=== PATIENT | female | born 1950 ===

== ENCOUNTER 2016-10-24 17:05 | Emergency (ER) | payer MEDICARE, MEDICAID ==
[2016-10-24 17:05] VITALS: BMI 29.9
--- NOTE | 2016-10-24 17:48 | C.PDOC ---
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 Chase is managing her anti- coagulations and recently did a dopplar and said the clot is getting smaller and everything looked normal but today the pain pain increased with swelling to the medial posterior aspect. Patient denies fever, chills, chest pain, SOB, nausea, vomiting, abdominal pain, headache, weakness or numbness. Time Seen by Provider: 10/24/16 17:20 Chief Complaint (Nursing): Lower Extremity Problem/Injury History Per: Patient History/Exam Limitations: no limitations Onset/Duration Of Symptoms: Days (1) Past Medical History Reviewed: Historical Data, Nursing Documentation, Vital Signs Vital Signs: Last Vital Signs Temp 98.1 F 10/24/16 20:07 Pulse 68 10/24/16 20:07 Resp 16 10/24/16 20:07 BP 128/69 10/24/16 20:07 Pulse Ox 100 10/24/16 20:07 - Medical History PMH: Deep Vein Thrombosis (on Pradaxa), Fractures (LUE), HTN, Hypercholesterolemia - [facility] Procedures VACCINATION NEC (12/17/13) Family History: States: No Known Family Hx - Social History Hx Tobacco Use: Yes Hx Alcohol Use: No Hx Substance Use: No - Immunization History Hx Tetanus Toxoid Vaccination: No Hx Influenza Vaccination: No Hx Pneumococcal Vaccination: No Review Of Systems Except As Marked, All Systems Reviewed And Found Negative. Constitutional: Negative for: Fever, Chills Cardiovascular: Negative for: Chest Pain Respiratory: Negative for: Shortness of Breath Gastrointestinal: Negative for: Nausea, Vomiting, Abdominal Pain Musculoskeletal: Positive for: Other ((+) Bilateral leg swelling and pain ) Neurological: Negative for: Weakness, Numbness, Headache Physical Exam - Physical Exam Appears: Well, Non-toxic, No Acute Distress Skin: Warm, Dry, No Rash Head: Atraumatic, Normacephalic Eye(s): bilateral: Conjunctiva Pale Oral Mucosa: Moist Chest: Symmetrical, No Tenderness Cardiovascular: Rhythm Regular, No Murmur Respiratory: Normal Breath Sounds, No Rales, No Rhonchi, No Stridor, No Wheezing Gastrointestinal/Abdominal: Normal Exam, Soft, No Tenderness, No Guarding, No Rebound Extremity: Other ((+) Bilateral leg swelling and tenderness along the greater saphenous to the medial aspect. (-) No bruising. ) Pulses: Left Dorsalis Pedis: Normal, Right Dorsalis Pedis: Normal Neurological/Psych: Oriented x3, Normal Speech, Normal Motor, Normal Sensation ED Course And Treatment - Laboratory Results Result Diagrams: 10/24/16 17:57 10/24/16 17:57 Lab Interpretation: No Acute Changes O2 Sat by Pulse Oximetry: 98 Progress Note: Venous doppler negative for DVT/SVT. Fluid collection present in posterior knee. Reevaluation Time: 20:18 Reassessment Condition: Unchanged Medical Decision Making Medical Decision Making: PLAN: * Venous Dopplar * CBC Disposition - Disposition Disposition: HOME/ ROUTINE Disposition Time: 20:18 Condition: STABLE Additional Instructions: follow up with Dr Fonseca. Wear your compression stockings as directed. Instructions: Bridges's Cyst (ED) - Clinical Impression Clinical Impression: Bridges's cyst of knee - Scribe Statement The provider has reviewed the documentation as recorded by the Gini Angeles Provider Attestation: All medical record entries made by the Gini were at my direction and personally dictated by me. I have reviewed the chart and agree that the record accurately reflects my personal performance of the history, physical exam, medical decision making, and the department course for this patient. I have also personally directed, reviewed, and agree with the discharge instructions and disposition.
[2016-10-24 18:05] LABS: BASO % 0.5 % (0.0-2.0); EOS # 0.2 K/uL (0.0-0.7); HEMATOCRIT 36.3 % (34.0-47.0); LYMPH # 1.5 K/uL (1.0-4.3); LYMPH % 25.6 % (20.0-40.0); MEAN CELL VOLUME 91.8 fL (81.0-99.0); MEAN CORPUSCULAR HEMOGLOBIN 30.8 pg (27.0-31.0); MEAN CORPUSCULAR HGB CONC 33.6 g/dL (33.0-37.0); MEAN PLATELET VOLUME 9.9 fL (7.2-11.7); MONO # 0.4 K/uL (0.0-0.8); MONO % 6.5 % (0.0-10.0); NRBC % 0.1 % (0.0-2.0); RED CELL DISTRIBUTION WIDTH 13.1 % (11.5-14.5)
[2016-10-24 18:11] LABS: INR 1.1
[2016-10-24 18:13] LABS: CHLORIDE 99 mmol/L (98-107); POTASSIUM 3.4 mmol/L (3.6-5.2); SODIUM 139 mmol/L (132-148)
[2016-10-24 18:15] LABS: BILIRUBIN,TOTAL 0.6 mg/dL (0.2-1.3); GFR AFRICAN-AMERICAN > 60
[2016-10-24 18:16] LABS: ALB/GLOB RATIO 1.4 (1.0-2.1); ALKALINE PHOSPHATASE 71 U/L (38-126); ALT/SGPT 19 U/L (9-52); AST/SGOT 24 U/L (14-36); BLOOD UREA NITROGEN 21 mg/dL (7-17); CARBON DIOXIDE 26 mmol/L (22-30); GLUCOSE,RANDOM 88 mg/dL (65-105); TOTAL PROTEIN 7.8 g/dL (6.3-8.3)
[2016-10-24 20:08] VITALS: TEMP 98.1
[2016-10-24 20:30] VITALS: BP 132/80; PULSE 65; RESP 20; O2SAT 100
--- NOTE | 2016-10-26 10:54 | VASCLAB ---
PROCEDURE: Right Lower Extremity Venous Duplex Exam. HISTORY: Hx DVT PRIORS: Last exam 05/2016, normal. TECHNIQUE: Right common femoral, femoral, popliteal and posterior tibial, peroneal and great saphenous veins were evaluated. Flow was assessed with color Doppler, compressibility, assessment of phasic flow and augmentation response. Report prepared by Eunice Brower call center associate. FINDINGS: RIGHT: 1. Common Femoral Vein: 1.1. Compressibility - Fully compressible: Thrombus - None: Flow - Phasic: Augmentation -Normal: Reflux - None. 2. Femoral Vein: 2.1. Compressibility - Fully compressible: Thrombus - None: Flow - Phasic: Augmentation -Normal: Reflux - None. 3. Popliteal Vein: 3.1. Compressibility - Fully compressible: Thrombus - None: Flow - Phasic: Augmentation -Normal: Reflux - Mild, 2.60s 4. Posterior Tibial Vein: 4.1. Compressibility - Fully compressible: Thrombus - None: Flow - Phasic: Augmentation -Normal: Reflux - None. 5. Peroneal Vein: 5.1. Compressibility - Fully compressible: Thrombus - None: Flow - Phasic: Augmentation -Normal: Reflux - None. 6. Great Saphenous Vein: 6.1. Compressibility - Fully compressible: Thrombus -None: Flow - Phasic: Augmentation - Normal: Reflux - Mild, 3.52s OTHER FINDINGS: IMPRESSION: 1. No evidence of deep or superficial vein thrombosis of the right lower extremity. Mild valvular incompetence noted of the right popliteal and great saphenous veins. 2. Fluid collection noted in the right posterior knee area, measuring 3.64 x 1.23 c.m. Normal venous flow noted in the left common femoral vein.
== END 2016-10-24 20:30 | disposition home or self-care (01) ==
LOC: C.ER 17:05
DX: M71.21 Synovial cyst of popliteal space [Baker], right knee (principal)

== ENCOUNTER 2016-10-26 07:21 | Emergency (ER) | payer MEDICARE, MEDICAID ==
[2016-10-26 07:21] VITALS: BMI 29.9
--- NOTE | 2016-10-26 07:41 | C.PDOC ---
History Of Present Illness Patient c/o right knee pain x 4 days. she was seen here 3 days ago, had LE venous duplex that was negative for DVT, but pos for Bridges's cyst. Patient has chronic pain in the same knee and had multiple prior visits for similar pain. Time Seen by Provider: 10/26/16 07:38 Chief Complaint (Nursing): Lower Extremity Problem/Injury History Per: Patient History/Exam Limitations: no limitations Onset/Duration Of Symptoms: Days (4) Current Symptoms Are (Timing): Still Present Severity: Moderate Pain Scale Rating Of: 7 Recent travel outside of the [place]: No Past Medical History Reviewed: Historical Data, Nursing Documentation, Vital Signs Vital Signs: Last Vital Signs Temp 98 F 10/26/16 08:46 Pulse 64 10/26/16 08:46 Resp 16 10/26/16 08:46 BP 135/74 10/26/16 08:46 Pulse Ox 98 10/26/16 08:46 - Medical History PMH: Deep Vein Thrombosis (on Pradaxa), Fractures (LUE), HTN, Hypercholesterolemia, TIA Other PMH: Chronic knee pain - [facility] Procedures VACCINATION NEC (12/17/13) Family History: States: Unknown Family Hx - Social History Hx Tobacco Use: Yes Hx Alcohol Use: No Hx Substance Use: No - Immunization History Hx Tetanus Toxoid Vaccination: No Hx Influenza Vaccination: No Hx Pneumococcal Vaccination: Yes Review Of Systems Except As Marked, All Systems Reviewed And Found Negative. Physical Exam - Physical Exam Appears: Well, No Acute Distress Skin: Normal Color, Warm, Dry, No Rash, No Cyanotic, No Ecchymosis, Other (no erythema) Neck: Normal, Normal ROM Back: No Vertebral Tenderness, No Paraspinal Tenderness Extremity: Tenderness (right knee , diffuse), Swelling (mild swelling of the right knee w/o erythema, w/o warmth) Neurological/Psych: Oriented x3, Normal Speech, Normal Cognition, Other ( ambulatory) ED Course And Treatment O2 Sat by Pulse Oximetry: 100 Progress Note: Patient was treated with Percocet 1 tab po and knee brace. [place] SPECIAL INVESTIGATOR aware reviewed. Patient had Percocet 10 tab in June last year. Patient was d/c home with PMD and Ortho f/u. Rx for Percocet 5/335 mg 10 tabs. Disposition - Disposition Disposition: HOME/ ROUTINE Disposition Time: 08:12 Condition: STABLE Additional Instructions: Follow up with PMD/Orthopedist within 1-2 days. Return to ED if feel worse. Prescriptions: oxyCODONE/Acetaminophen [Percocet 5/325 mg Tab] 1 tab PO QID PRN #10 tab PRN Reason: Pain Instructions: Knee Pain (ED) Forms: Work Excuse - Clinical Impression Clinical Impression: Knee pain
[2016-10-26] MEDS ORDERED: Oxycodone/Acetaminophen 5/325 mg Tab PO STA (07:58)
[2016-10-26] MEDS ORDERED: Oxycodone/Acetaminophen 5/325 mg Tab ONE (08:10)
[2016-10-26 08:47] VITALS: BP 135/74; PULSE 64; RESP 16; TEMP 98
[2016-10-26 08:57] VITALS: O2SAT 100
== END 2016-10-26 08:50 | disposition home or self-care (01) ==
LOC: C.ER 07:21
DX: M25.561 Pain in right knee (principal)

== ENCOUNTER 2016-11-24 15:25 | Emergency (ER) | payer MEDICAID, MEDICARE ==
[2016-11-24 15:26] VITALS: BMI 29.0
[2016-11-24 15:37] VITALS: BP 115/70; PULSE 71; RESP 18; TEMP 98.3; O2SAT 95
--- NOTE | 2016-11-24 16:43 | RAD ---
PROCEDURE: Radiographs of the Lumbar Spine. HISTORY: r/o fx COMPARISON: No prior. FINDINGS: BONES: Mild rightward convexity of the lumbar spine. No listhesis. No fracture. Marginal osteophytes -diffuse and right inferior facet arthrosis DISC SPACES: Unremarkable. OTHER FINDINGS: Moderate stool retention IMPRESSION: Degenerative changes as above. No fracture
--- NOTE | 2016-11-24 17:06 | C.PDOC ---
History Of Present Illness 66 year old patient presents to the ED complaining of left lower back pain that increases with movement for 2 days. 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 She took Tylenol with some relief. She is unable to take NSAIDs due to gastric issues. Patient denies dysuria, hematuria, numbness, weakness, or direct trauma to her back. Time Seen by Provider: 11/24/16 16:01 Chief Complaint (Nursing): Back Pain History Per: Patient History/Exam Limitations: no limitations Onset/Duration Of Symptoms: Days (2) Current Symptoms Are (Timing): Still Present Quality Of Discomfort: "Pain" Severity: Mild Pain Scale Rating Of: 3 Associated Symptoms: None Exacerbating Factor(s): Movement Recent travel outside of the [place]: No Past Medical History Reviewed: Historical Data, Nursing Documentation, Vital Signs Vital Signs: Last Vital Signs Temp 98.3 F 11/24/16 15:34 Pulse 71 11/24/16 15:34 Resp 18 11/24/16 15:34 BP 115/70 11/24/16 15:34 Pulse Ox 95 11/24/16 18:10 - Medical History PMH: Deep Vein Thrombosis (on Pradaxa), Fractures (LUE), HTN, Hypercholesterolemia, TIA - [facility] Procedures VACCINATION NEC (12/17/13) Family History: States: Unknown Family Hx - Social History Hx Tobacco Use: Yes Hx Alcohol Use: No Hx Substance Use: No - Immunization History Hx Tetanus Toxoid Vaccination: No Hx Influenza Vaccination: No Hx Pneumococcal Vaccination: Yes Review Of Systems Except As Marked, All Systems Reviewed And Found Negative. Genitourinary: Negative for: Dysuria, Hematuria Musculoskeletal: Positive for: Back Pain (left lower) Neurological: Negative for: Weakness, Numbness Physical Exam - Physical Exam Appears: Non-toxic, No Acute Distress Skin: Warm, Dry Head: Atraumatic, Normacephalic Eye(s): bilateral: Normal Inspection, PERRL, EOMI Neck: Normal ROM, Supple Chest: Symmetrical Cardiovascular: Rhythm Regular Respiratory: Normal Breath Sounds, No Rales, No Rhonchi, No Wheezing Gastrointestinal/Abdominal: Soft, No Tenderness Back: Normal Inspection, No CVA Tenderness, No Vertebral Tenderness Extremity: Normal ROM Extremity: Bilateral: Atraumatic Neurological/Psych: Oriented x3, Normal Motor, Normal Sensation Gait: Steady ED Course And Treatment O2 Sat by Pulse Oximetry: 95 (room air) Pulse Ox Interpretation: Normal - Other Rad LS spine AP/Lat X-Ray: Read By Radiologist (Sarah Benito V.) Interpretation: PROCEDURE: Radiographs of the Lumbar Spine. HISTORY: r/o fx. COMPARISON: No prior. FINDINGS: BONES: Mild rightward convexity of the lumbar spine. No listhesis. No fracture. Marginal osteophytes -diffuse and right inferior facet arthrosis. DISC SPACES: Unremarkable. OTHER FINDINGS: Moderate stool retention. IMPRESSION: Degenerative changes as above. No fracture Progress Note: Plan: LS spine AP/Lat x-ray Disposition - Disposition Referrals: [facility], [Non-Staff] - Disposition: HOME/ ROUTINE Disposition Time: 16:25 Condition: GOOD Additional Instructions: Thank you for letting us take care of you today. Your provider was Dr. Hand. You were treated for lower back pain. The emergency medical care you received today was directed at your acute symptoms. If you were prescribed any medication, please fill it and take as directed. It may take several days for your symptoms to resolve. Return to the Emergency Department if your symptoms worsen, do not improve, or if you have any other problems. Please contact your doctor or call one of the physicians/clinics you have been referred to that are listed on the Patient Visit Information form that is included in your discharge packet. Bring any paperwork you were given at discharge with you along with any medications you are taking to your follow up visit. Our treatment cannot replace ongoing medical care by a primary care provider (PCP) outside of the emergency department. Thank you for allowing the [facility] team to be part of your care today. Follow up with your doctor in 2-3 days for re-evaluation. Prescriptions: Cyclobenzaprine [Cyclobenzaprine HCl] 10 mg PO Q8 PRN #20 tab PRN Reason: Muscle Spasm Instructions: Acute Low Back Pain (ED) - Clinical Impression Clinical Impression: Low back pain - Scribe Statement The provider has reviewed the documentation as recorded by the Scribe Veronique Frye Provider Attestation: All medical record entries made by the Scribe were at my direction and personally dictated by me. I have reviewed the chart and agree that the record accurately reflects my personal performance of the history, physical exam, medical decision making, and the department course for this patient. I have also personally directed, reviewed, and agree with the discharge instructions and disposition.
== END 2016-11-24 16:54 | disposition home or self-care (01) ==
LOC: C.ER 15:25
DX: M54.5 Low back pain (principal)

== ENCOUNTER 2017-01-01 13:22 | Observation (INO) | payer MEDICARE, MEDICAID ==
[2017-01-01 13:34] VITALS: BMI 29.7
--- NOTE | 2017-01-01 14:39 | RAD ---
HISTORY: chest pain COMPARISON: Chest x-ray performed 03/17/16 TECHNIQUE: Chest PA and lateral FINDINGS: Examination limited by habitus. LUNGS: Mild left basilar atelectasis or infiltrate. Please note that chest x-ray has limited sensitivity for the detection of pulmonary masses. PLEURA: No significant pleural effusion identified. No definite pneumothorax . CARDIOVASCULAR: Heart size appears top normal. OSSEOUS STRUCTURES: Degenerative changes. VISUALIZED UPPER ABDOMEN: Unremarkable. OTHER FINDINGS: None. IMPRESSION: Mild left basilar atelectasis or infiltrate.
[2017-01-01 14:56] LABS: BASO % 0.6 % (0.0-2.0); EOS # 0.1 K/uL (0.0-0.7); EOS % 3.1 % (0.0-4.0); HEMATOCRIT 35.4 % (34.0-47.0); LYMPH # 1.3 K/uL (1.0-4.3); MEAN CELL VOLUME 92.7 fL (81.0-99.0); MEAN CORPUSCULAR HEMOGLOBIN 30.8 pg (27.0-31.0); MEAN CORPUSCULAR HGB CONC 33.2 g/dL (33.0-37.0); MEAN PLATELET VOLUME 9.3 fL (7.2-11.7); MONO # 0.4 K/uL (0.0-0.8); RED CELL DISTRIBUTION WIDTH 13.5 % (11.5-14.5); WHITE BLOOD COUNT 4.4 K/uL (4.8-10.8)
[2017-01-01 14:58] LABS: RBC URINE 1 /hpf (0-3); URINE BACTERIA RARE (<OCC); URINE BILIRUBIN NEGATIVE (NEGATIVE); URINE BLOOD NEGATIVE (NEGATIVE); URINE COLOR Yellow (YELLOW); URINE GLUCOSE (UA) NORMAL (Normal); URINE KETONE NEGATIVE (NEGATIVE); URINE LEUKOCYTE ESTERASE TRACE Leu/uL (Negative); URINE PROTEIN NEGATIVE (NEGATIVE); URINE UROBILINOGEN NORMAL mg/dL (0.2-1.0); WBC URINE 4 /hpf (0-5)
[2017-01-01 15:03] LABS: INR 1.2
[2017-01-01 15:04] LABS: CHLORIDE 99 mmol/L (98-107)
[2017-01-01 15:05] LABS: POTASSIUM 3.7 mmol/L (3.6-5.2); SODIUM 139 mmol/L (132-148)
[2017-01-01 15:08] LABS: ALB/GLOB RATIO 1.3 (1.0-2.1); ALKALINE PHOSPHATASE 69 U/L (38-126); ALT/SGPT 32 U/L (9-52); AST/SGOT 23 U/L (14-36); BILIRUBIN,TOTAL 0.4 mg/dL (0.2-1.3); BLOOD UREA NITROGEN 19 mg/dL (7-17); CALCIUM 9.3 mg/dl (8.6-10.4); CARBON DIOXIDE 25 mmol/L (22-30); GFR AFRICAN-AMERICAN > 60; GLUCOSE,RANDOM 117 mg/dL (65-105); TOTAL PROTEIN 6.9 g/dL (6.3-8.3)
--- NOTE | 2017-01-01 15:13 | C.PDOC ---
History Of Present Illness 66 y/o female, with PMHx of HTN, diabetes, hyperlipidemia, and DVT on Pardaxa, presents to the ED for evaluation of intermittent left sided chest pain since yesterday. Described as squeezing sensation. Pt is compliant with Pardaxa. Otherwise, denies any shortness of breath, or fever. Time Seen by Provider: 01/01/17 14:14 Chief Complaint (Nursing): Chest Pain History Per: Patient History/Exam Limitations: no limitations Onset/Duration Of Symptoms: Days (1) Current Symptoms Are (Timing): Still Present Quality: Squeezing, "Pain" Associated Symptoms: denies: Nausea, Dyspnea, Diaphoresis, Syncope Modifying Factors: None Exacerbating Factors: None Alleviating Factors: None Recent travel outside of the [place]: No Additional History Per: Patient Past Medical History Reviewed: Historical Data, Nursing Documentation, Vital Signs Vital Signs: Last Vital Signs Temp 97.9 F 01/01/17 16:53 Pulse 62 01/01/17 16:53 Resp 18 01/01/17 16:53 BP 123/70 01/01/17 16:53 Pulse Ox 99 01/01/17 16:53 - Medical History PMH: Deep Vein Thrombosis (on Pradaxa), Fractures (LUE), HTN, Hypercholesterolemia, TIA - [facility] Procedures VACCINATION NEC (12/17/13) Family History: States: Unknown Family Hx - Social History Hx Tobacco Use: Yes Hx Alcohol Use: No Hx Substance Use: No - Immunization History Hx Tetanus Toxoid Vaccination: No Hx Influenza Vaccination: No Hx Pneumococcal Vaccination: Yes Review Of Systems Except As Marked, All Systems Reviewed And Found Negative. Constitutional: Negative for: Fever, Chills Cardiovascular: Positive for: Chest Pain. Negative for: Palpitations, Light Headedness Respiratory: Negative for: Cough, Shortness of Breath Gastrointestinal: Negative for: Nausea, Vomiting Neurological: Negative for: Headache, Dizziness Physical Exam - Physical Exam Appears: Non-toxic, No Acute Distress Skin: Normal Color, Warm, Dry Head: Atraumatic, Normacephalic Chest: Symmetrical Cardiovascular: Rhythm Regular, No Murmur Respiratory: Normal Breath Sounds, No Accessory Muscle Use, No Rales, No Rhonchi , No Wheezing Gastrointestinal/Abdominal: Soft, No Tenderness Extremity: Bilateral: Atraumatic, Normal ROM Neurological/Psych: Oriented x3, Normal Speech, Normal Cognition ED Course And Treatment - Laboratory Results Result Diagrams: 01/01/17 14:52 01/01/17 14:52 ECG: Interpreted By Me, Viewed By Me ECG Rhythm: Sinus Rhythm ECG Interpretation: No Acute Changes Interpretation Of ECG: No ST wave changes. Rate From EC (bpm) O2 Sat by Pulse Oximetry: 97 (RA) Pulse Ox Interpretation: Normal Progress Note: EKG, CXR, blood work, urinalysis ordered and reviewed. Medical Decision Making Medical Decision Making: multiple risks factors, squeezing pain - r/o acs- labs imaging pending 400: asa dosed. trop neg x 1, pt reports h/o of stress 3 mo ago, that "was stopped because she could not tolerate". dr aguillon accepts for obs Disposition - Disposition Disposition: HOSPITALIZED Disposition Time: 15:53 Condition: STABLE - Clinical Impression Clinical Impression: Chest pain - Scribe Statement The provider has reviewed the documentation as recorded by the Scribe Ishan Frye All medical record entries made by the Scribe were at my direction and personally dictated by me. I have reviewed the chart and agree that the record accurately reflects my personal performance of the history, physical exam, medical decision making, and the department course for this patient. I have also personally directed, reviewed, and agree with the discharge instructions and disposition. Decision To Admit - Pt Status Changed To: Hospital Disposition Of: Observation - . Bed Request Type: Telemetry Admitting Physician: aMeve Aguillon Patient Diagnosis: Chest pain
[2017-01-01] MEDS ORDERED: Sodium Chloride 0.45% 1,000 ML IV SCH (18:00)
--- NOTE | 2017-01-01 18:05 | CP.PCM.HP ---
Addendum entered and electronically signed by Selena Woodruff 01/01/17 18:24 : Heparin discontinued as per Dr. Martinez Original Note: <Selena Woodruff - Last Filed: 01/01/17 17:54> History of Present Illness - History of Present Illness History of Present Illness: CC: squeezing chest pain HPI: Patient is a 66 year old female with PMH of HTN, DM, HLD, DVT (on Paradaxa) , TIA (2010), chronic back pain, uterine cancer (1983) who comes into the ED for chest pain which started at 9pm the night before. Patient was resting and watching tv when she suddenly experienced tight squeezing midsternal chest pain with no radiation. Patient had never had pain like this in the past. Patient said the pain was 8/10. Patient had no shortness of breath, palpitations, or sweating. Patient said the pain then waxed and waned. Patient took tylenol for the pain with no relief. Patient tried to go to sleep but woke up about 8 times due to the chest pain and decided to come to the emergency room. Patient has not been sick recently. Patient sleeps on 2 pillows and does not feel short of breath at night. Patient goes for walks often and is able to walk a far distance with no chest pain or shortness of breath. Patient felt nauseous this morning, but with no episode of vomiting. Now in the ED patient is having no chest pain. Patient is no longer feeling nauseous. Patient denies headache, lightheadedness, dizziness, shortness of breath, palpitations, abdominal pain, nausea, vomiting, constipation, or diarrhea. PMD: Dr. Newsome Cardio: Dr. Kiara Fonseca Allergies: bacitracin and adhesive tape: rash, clopidogrel- throat closes/ anaphylaxis PMHx: HTN, DM, HLD, DVT (on Paradaxa), TIA (2010), chronic back pain, uterine cancer (1983) Psurg: Hysterectomy (1983) Famhx: Mom: heart disease, DM, HTN, Alzheimer's Father: prostate cancer Social: smokes 3-4 cigarettes per day for 10 years, before that smoked 1/2 a pack of cigarettes per day for 15 years alcohol: denies, drugs: denies, lives alone, works at a school Home meds: Pardaxa 150 mg po BID Aspirin 81 mg po daily HCTZ 12.5 mg po daily Lisinopril 20 mg po daily Simvastatin 20 mg po daily Cyclobenzaprine 10 mg po daily Present on Admission - Present on Admission Any Indicators Present on Admission: Yes History of DVT/PE: Yes History of Uncontrolled Diabetes: No Urinary Catheter: No Decubitus Ulcer Present: No Review of Systems - Constitutional Constitutional: Chills. absent: Fever, Night Sweats, Weakness - EENT Eyes: absent: Blurred Vision, Change in Vision Nose/Mouth/Throat: absent: Hoarsness, Mouth Pain, Sore Throat - Cardiovascular Cardiovascular: Chest Pain. absent: Claudication, Diaphoresis, Dyspnea on Exertion, Edema, Leg Edema, Lightheadedness, Orthopnea, Palpitations, Paroxysmal Nocturnal Dyspnea, Pedal Edema, Radiating Pain - Respiratory Respiratory: absent: Cough, Dyspnea, Dyspnea on Exertion, Wheezing - Gastrointestinal Gastrointestinal: absent: Abdominal Pain, Change in Stool Character - Genitourinary Genitourinary: absent: Change in Urinary Stream, Urinary Incontinence, Urinary Frequency - Musculoskeletal Musculoskeletal: absent: Muscle Weakness, Myalgias, Stiffness - Integumentary Integumentary: absent: Change in Pigmentation, Changing Lesions, New Lesions - Neurological Neurological: absent: Confusion, Dizziness, Headaches, Vertigo, Weakness - Psychiatric Psychiatric: absent: Confusion, Depression - Endocrine Endocrine: absent: Fatigue, Palpitations - Hematologic/Lymphatic Hematologic: Easy Bleeding, Easy Bruising Past Patient History - Infectious Disease Hx of Infectious Diseases: None - Past Social History Smoking Status: Light Smoker < 10 Cigarettes Daily - CARDIAC Hx Hypercholesterolemia: Yes Hx Hypertension: Yes - NEUROLOGICAL Hx Transient Ischemic Attacks (TIA): Yes - HEMATOLOGICAL/ONCOLOGICAL Hx Blood Disorders: Yes Hx Cancer: Yes (Uterine in 1983) - MUSCULOSKELETAL/RHEUMATOLOGICAL Hx Fractures: Yes (LUE) - GENITOURINARY/GYNECOLOGICAL Hx Genitourinary Disorders: Yes Hx Uterine Cancer: Yes (1983) - PSYCHIATRIC Hx Substance Use: No - SURGICAL HISTORY Hx Surgeries: Yes Hx Hysterectomy: Yes (partial) Other/Comment: LLE ablation - ANESTHESIA Hx Anesthesia: Yes Hx Anesthesia Reactions: No Meds Allergies/Adverse Reactions: Allergies Allergy/AdvReac Type Severity Reaction Status Date / Time bacitracin Allergy Severe RASH Verified 11/24/16 15:37 adhesive tape Allergy URTICARIA Verified 11/24/16 15:37 clopidogrel [From Plavix] Allergy RASH Verified 11/24/16 15:37 Physical Exam - Constitutional Appears: Well, Non-toxic, No Acute Distress - Head Exam Head Exam: ATRAUMATIC, NORMAL INSPECTION, NORMOCEPHALIC - Eye Exam Eye Exam: EOMI, Normal appearance, PERRL - ENT Exam ENT Exam: Mucous Membranes Moist - Respiratory Exam Respiratory Exam: Clear to Auscultation Bilateral, NORMAL BREATHING PATTERN. absent: Rales, Rhonchi, Wheezes, Respiratory Distress, Stridor - Cardiovascular Exam Cardiovascular Exam: REGULAR RHYTHM, RRR. absent: Gallop, JVD, Rubs, Systolic Murmur - GI/Abdominal Exam GI & Abdominal Exam: Normal Bowel Sounds, Soft. absent: Tenderness - Extremities Exam Extremities exam: Positive for: full ROM, normal inspection. Negative for: pedal edema - Back Exam Back exam: NORMAL INSPECTION. absent: rash noted - Neurological Exam Neurological exam: Alert, CN II-XII Intact, Oriented x3 - Psychiatric Exam Psychiatric exam: Normal Affect, Normal Mood - Skin Skin Exam: Intact, Normal Color, Warm Results - Vital Signs Recent Vital Signs: Last Vital Signs Temp 97.9 F 01/01/17 16:53 Pulse 62 01/01/17 16:53 Resp 18 01/01/17 16:53 BP 123/70 01/01/17 16:53 Pulse Ox 99 01/01/17 16:53 - Labs Result Diagrams: 01/01/17 14:52 01/01/17 14:52 Assessment & Plan - Assessment and Plan (Free Text) Assessment: 1. Chest Pain SOFI score: 3 (age >65, ASA in past 7 days, >3 CAD risk factors): 13% risk at 14 days consulted cardiology, Dr. Martinez, help appreciated ASA 325mg po x1 in ED ASA 81 mg po daily Pardaxa 150 mg po BID- took first dose at home EKG in ED: NSR at 74 bpm f/u EKG and ROMIs at 8pm and 2am first JULIANE: negative f/u ECHO f/u CTA r/o PE, hx of dvt and positive smoker 1/2 NS at 75cc/ hr f/u HgA1c, TSH, free T4, Lipid panel 2. Diabetes type 2 HgA1c, lipid panel Accuchecks ACHS ISS- low 3. Hx of DVT pardaxa 150mg po BID f/u venous doppler r/o DVT Allergic to Plavix-- anaphylaxis 4. Hypertension Lisinopril 20 mg po daily HCTZ 12.5 mg po daily 5. Chronic back pain continue home med: cyclobenzaprine 10 mg daily 6. Prophylaxis Heparin 5000 u sc q12h Pepcid 20 mg PO BID Zofran 4 mg IV q6h <PalMaeve Linda - Last Filed: 01/01/17 20:05> Results - Vital Signs Recent Vital Signs: Last Vital Signs Temp 98.6 F 01/01/17 19:51 Pulse 61 01/01/17 19:51 Resp 20 01/01/17 19:51 BP 127/72 01/01/17 19:51 Pulse Ox 97 01/01/17 19:51 - Labs Result Diagrams: 01/01/17 14:52 01/01/17 14:52 Assessment & Plan (1) Chest pain Assessment and Plan: SOFI score: 3 (age >65, ASA in past 7 days, >3 CAD risk factors): 13% risk at 14 days all-cause mortality consulted cardiology, Dr. Martinez, help appreciated (patient reports she does not want to see Kiara Fonseca; I asked during the patient encounter in the emergency room) ASA 325mg po x1 in ED ASA 81 mg po daily Pardaxa 150 mg po BID- took first dose at home; will resume EKG in ED: NSR at 74 bpm f/u EKG and ROMIs at 8pm on 01/01/17 and 2am on 01/02/17 first JULIANE: negative f/u ECHO f/u CTA r/o PE reason: hx of dvt and positive smoker 1/2 NS at 75cc/ hr f/u HgA1c, TSH, free T4, Lipid panel in AM Status: Acute (2) Diabetes Assessment and Plan: HgA1c, lipid panel Accuchecks ACHS ISS- low Patient reports she does not take anything for diabetes at bedside Status: Chronic (3) Hypertension Assessment and Plan: Resume patient's home medications: Lisinopril 20 mg po daily HCTZ 12.5 mg po daily Patient took home medications prior to coming to the emergency room Status: Chronic (4) Hx of deep venous thrombosis Assessment and Plan: pardaxa 150mg po BID f/u venous doppler r/o DVT Allergic to Plavix-- anaphylaxis Patient reports she needs to be on pradaxa lifelong Status: Chronic (5) Prophylactic measure Assessment and Plan: Heparin 5000 u sc q12h for DVT ppx Pepcid 20 mg PO BID for GI ppx Zofran 4 mg IV q6h PRN nausea Status: Acute Attending/Attestation - Attestation I have personally seen and examined this patient.: Yes I have fully participated in the care of the patient.: Yes I have reviewed all pertinent clinical information: Yes Notes (Text): Patient seen, examined and case discussed with day-time resident. Patient seen in [place] [id number] ED on 01/01/17 at 4:40PM. Patient reporting left substernal chest pain with associated palpitations that last for few minutes at a time. Patient has cardiac risk factors including diabetes and hypertension but does not take any medications for diabetes and compliant on anti-hypertensives. Patient reports an attempt of exercise stress test a year ago but could not physically take the test. patient is also a current smoker. Patient reports she would like to see any dumb waiter operator which is local to her. Will check echocardiogram, JULIANE and EKG q 6hours, received full dose aspirin in the ED, and took ant-hypertensives prior to coming to the hospital and due for her second dose of Pradaza with Simvasatin. Patient reports hx of DVT, and is a current smoker; will r/o PE. Patient denies SOB, not hypoxic, not tachycardic. Will consult cardiology given atypical chest pain presentation in a female with cardiac risk factors. Discussed admitting orders with day-time resident.
--- NOTE | 2017-01-01 18:32 | CP.PCM.PN ---
Addendum entered and electronically signed by Selena Woodruff 01/01/17 18:44 : PLEASE DISREGARD this progress note, intended for different patient Original Note: <Selena Woodruff - Last Filed: 01/01/17 18:29> Subjective - Date & Time of Evaluation Date of Evaluation: 01/01/17 Time of Evaluation: 07:00 - Subjective Subjective: PGY1-Medicine Note- Dr. Aguillon's Service Patient seen and examined at bedside and in no acute distress. Patient says he no longer has full body pain, but does have back pain that he rates 8/10. Patient says he has been able to urinate and it is darker in color but did not see blood in it like before. Patient said he is urinating more often than normal. Patient denies chills, fever, shortness of breath, chest pain, abdominal pain, nausea, vomiting, constipation, or diarrhea. Objective - Vital Signs/Intake and Output Vital Signs (last 24 hours): Temp Pulse Resp BP Pulse Ox 97.9 F 62 18 123/70 97 01/01/17 16:53 01/01/17 16:53 01/01/17 16:53 01/01/17 16:53 01/01/17 18:20 - Medications Medications: Current Medications Aspirin (Aspirin Chewable) 81 mg PO DAILY [facility] Cyclobenzaprine HCl (Flexeril) 10 mg PO Q8 PRN PRN Reason: Muscle spasm Dabigatran (Pradaxa) 150 mg PO BID [facility] Famotidine (Pepcid) 20 mg PO BID [facility] Hydrochlorothiazide (Microzide) 12.5 mg PO DAILY [facility] Sodium Chloride (Sodium Chloride 0.45%) 1,000 mls @ 75 mls/hr IV .[id number] [facility] Insulin Human Regular (Novolin R) 0 unit SC ACHS [facility] PRN Reason: Protocol Lisinopril (Zestril) 20 mg PO DAILY [facility] Ondansetron HCl (Zofran Inj) 4 mg IVP Q6H PRN PRN Reason: Nausea/Vomiting Rosuvastatin Calcium (Crestor) 5 mg PO HS [facility] - Labs Labs: PT 13.2 SECONDS (9.7-12.2) H 01/01/17 14:52 INR 1.2 01/01/17 14:52 APTT 56 SECONDS (21-34) H 01/01/17 14:52 - Constitutional Appears: Well, Non-toxic, No Acute Distress - Head Exam Head Exam: ATRAUMATIC, NORMAL INSPECTION, NORMOCEPHALIC - Eye Exam Eye Exam: EOMI, Normal appearance, PERRL - ENT Exam ENT Exam: Mucous Membranes Moist, Normal Exam - Neck Exam Neck Exam: Full ROM, Normal Inspection. absent: Lymphadenopathy - Respiratory Exam Respiratory Exam: Clear to Ausculation Bilateral, NORMAL BREATHING PATTERN. absent: Rales, Rhonchi, Wheezes, Respiratory Distress, Stridor - Cardiovascular Exam Cardiovascular Exam: REGULAR RHYTHM, RRR. absent: Gallop, Rubs, Murmur - GI/Abdominal Exam GI & Abdominal Exam: Soft, Normal Bowel Sounds - Extremities Exam Extremities Exam: Full ROM, Normal Inspection - Back Exam Back Exam: Full ROM, NORMAL INSPECTION. absent: CVA tenderness (L), CVA tenderness (R) - Neurological Exam Neurological Exam: Alert, Awake, Oriented x3 - Psychiatric Exam Psychiatric exam: Normal Affect, Normal Mood - Skin Skin Exam: Intact, Normal Color, Warm Assessment and Plan - Assessment and Plan (Free Text) Assessment: Leukocytosis / Prostatitis / Hematuria * WBC 17.3 on admission * WBC decreased to 12.7 on 01/01 * afebrile * Urine +WBC 351, RBC 866 2+ leukocyte esterase, Lactate 0.9 * Patient treated with IV fluids and IV Cipro in ED. * Continue Cipro 400mg IVPB Q12H * f/u UC- preliminary no growth * f/u BC * procalcitonin: 1.87 * CT abd/pelvis w/IV contrast to r/o pyelonephritis - no radiodense urolithiasis appreciated bilaterally, perinephric reaction or obstructive uropathy. Normal renal excretory function is appreciated. No suspicious filling defects are depicted throughout the bilateral ureters. Urinary bladder base uplifted by an enlarged prostate gland. Diffuse colonic diverticulosis without diverticulitis. Prior cholecystectomy. Diabetes * Continue home Metformin 500mg PO BID * Continue home ASA 81mg PO qd * A1c:6.6 * Lipids: Triglycerides: 96, Cholesterol: 118, LDL:68, HDL:25 * TSH, Free T4 WNL * Novolog ISS - medium dose Prophylaxis * SCDs * heart healthy diet * Pepcid * Heparin 5k SC q8H <Maeve Aguillon V - Last Filed: 01/01/17 19:54> Objective - Vital Signs/Intake and Output Vital Signs (last 24 hours): Temp Pulse Resp BP Pulse Ox 98.6 F 61 20 127/72 97 01/01/17 19:51 01/01/17 19:51 01/01/17 19:51 01/01/17 19:51 01/01/17 19:51 - Medications Medications: Current Medications Aspirin (Aspirin Chewable) 81 mg PO DAILY [facility] Cyclobenzaprine HCl (Flexeril) 10 mg PO Q8 PRN PRN Reason: Muscle spasm Dabigatran (Pradaxa) 150 mg PO BID [facility] Last Admin: 01/01/17 19:40 Dose: 150 mg Famotidine (Pepcid) 20 mg PO BID [facility] Last Admin: 01/01/17 19:40 Dose: 20 mg Hydrochlorothiazide (Microzide) 12.5 mg PO DAILY [facility] Sodium Chloride (Sodium Chloride 0.45%) 1,000 mls @ 75 mls/hr IV .[id number] [facility] Last Admin: 01/01/17 19:42 Dose: 75 mls/hr Insulin Human Regular (Novolin R) 0 unit SC ACHS [facility] PRN Reason: Protocol Lisinopril (Zestril) 20 mg PO DAILY [facility] Ondansetron HCl (Zofran Inj) 4 mg IVP Q6H PRN PRN Reason: Nausea/Vomiting Rosuvastatin Calcium (Crestor) 5 mg PO HS [facility] - Labs Labs: PT 13.2 SECONDS (9.7-12.2) H 01/01/17 14:52 INR 1.2 01/01/17 14:52 APTT 56 SECONDS (21-34) H 01/01/17 14:52 Attending/Attestation - Attestation Notes (Text): This note was placed in error by the resident for the incorrect patient. please disregard progress note.
[2017-01-01] MEDS ORDERED: Iohexol 300 100 ML IJ ONE (19:01)
[2017-01-01 19:51] VITALS: RESP 20
[2017-01-01] MEDS: (Novolin R) Insulin Human Regular 100 units/ml vial SC SCH (22:00)
--- NOTE | 2017-01-01 22:05 | CP.PCM.CON ---
History of Present Illness - History of Present Illness History of Present Illness: 66 F with multiple risk factors admitted for chest pain CTA pending Continue current medications Past Patient History - Infectious Disease Hx of Infectious Diseases: None - Past Social History Smoking Status: Light Smoker < 10 Cigarettes Daily - CARDIAC Hx Hypercholesterolemia: Yes Hx Hypertension: Yes - NEUROLOGICAL Hx Transient Ischemic Attacks (TIA): Yes - HEMATOLOGICAL/ONCOLOGICAL Hx Blood Disorders: Yes Hx Cancer: Yes (Uterine in 1983) - MUSCULOSKELETAL/RHEUMATOLOGICAL Hx Fractures: Yes (LU) - GENITOURINARY/GYNECOLOGICAL Hx Genitourinary Disorders: Yes Hx Uterine Cancer: Yes (1983) - PSYCHIATRIC Hx Substance Use: No - SURGICAL HISTORY Hx Surgeries: Yes Hx Hysterectomy: Yes (partial) Other/Comment: LLE ablation - ANESTHESIA Hx Anesthesia: Yes Hx Anesthesia Reactions: No Meds Allergies/Adverse Reactions: Allergies Allergy/AdvReac Type Severity Reaction Status Date / Time bacitracin Allergy Severe RASH Verified 11/24/16 15:37 adhesive tape Allergy URTICARIA Verified 11/24/16 15:37 clopidogrel [From Plavix] Allergy RASH Verified 11/24/16 15:37 - Medications Medications: Current Medications Aspirin (Aspirin Chewable) 81 mg PO DAILY [facility] Cyclobenzaprine HCl (Flexeril) 10 mg PO Q8 PRN PRN Reason: Muscle spasm Dabigatran (Pradaxa) 150 mg PO BID [facility] Last Admin: 01/01/17 19:40 Dose: 150 mg Famotidine (Pepcid) 20 mg PO BID [facility] Last Admin: 01/01/17 19:40 Dose: 20 mg Hydrochlorothiazide (Microzide) 12.5 mg PO DAILY [facility] Sodium Chloride (Sodium Chloride 0.45%) 1,000 mls @ 75 mls/hr IV .[id number] [facility] Last Admin: 01/01/17 19:42 Dose: 75 mls/hr Insulin Human Regular (Novolin R) 0 unit SC ACHS [facility] PRN Reason: Protocol Lisinopril (Zestril) 20 mg PO DAILY [facility] Ondansetron HCl (Zofran Inj) 4 mg IVP Q6H PRN PRN Reason: Nausea/Vomiting Rosuvastatin Calcium (Crestor) 5 mg PO HS [facility] Results - Vital Signs Recent Vital Signs: Last Vital Signs Temp 98.6 F 01/01/17 19:51 Pulse 61 01/01/17 19:51 Resp 20 01/01/17 19:51 BP 127/72 01/01/17 19:51 Pulse Ox 97 01/01/17 19:51 - Labs Result Diagrams: 01/01/17 14:52 01/01/17 14:52 Labs: Laboratory Results - last 24 hr 01/01/17 01/01/17 20:55 21:28 POC Glucose (mg/dL) 94 Total Creatine Kinase 60 CK-MB (Mass) 0.82 Troponin I, Quant < 0.0120
--- NOTE | 2017-01-01 23:03 | CT ---
EXAM: CT Angiography Chest With Intravenous Contrast CLINICAL HISTORY: 66 years old, female; Pain; Chest pressure; Additional info: R/O pe, HX dvt TECHNIQUE: Axial computed tomographic angiography images of the chest with intravenous contrast using pulmonary embolism protocol. This CT exam was performed using one or more of the following dose reduction techniques: automated exposure control, adjustment of the mA and/or kV according to patient size, and/or use of iterative reconstruction technique. MIP reconstructed images were created and reviewed. Coronal and sagittal reformatted images were created and reviewed. CONTRAST: 100 mL of omnipaque 300 administered intravenously. EXAM DATE/TIME: 01/01/2017 5:39 PM COMPARISON: CR - CHEST ONE VIEW 04/15/2015 5:58:03 PM FINDINGS: Heart, aorta and Pulmonary arteries: Heart size is normal. There is no pericardial effusion. There is minimal vascular calcification.There is no aneurysm or dissection. There is perfusion of the 3 arch vessels. There are no pulmonary emboli. Lungs and pleural spaces: Trachea and main bronchi are patent. There is minimal apical pleural scarring bilaterally. There is patchy airspace disease at the lung bases. There is scarring at the lung bases. There is no lobar or segmental consolidation. There are no effusions. Mediastinum: Esophagus is unremarkable. There are no pathologically enlarged mediastinal or hilar nodes. Thyroid: Thyroid is not optimally demonstrated. Bones/joints: Bony structures are osteopenic.There are degenerative changes in the osseus structures. Soft tissues: unremarkable Upper abdomen: There are no acute abnormalities in the visualized portion of the abdomen. IMPRESSION: No aneurysm, dissection or pulmonary embolus; atelectatic changes at the lung bases, no focal pneumonia
[2017-01-02] MEDS: (Novolin R) Insulin Human Regular 100 units/ml vial SC SCH (07:52)
[2017-01-02 08:29] LABS: THYROID STIMULATING HORMONE 1.87 mIU/L (0.46-4.68)
[2017-01-02] MEDS ORDERED: Pneumococcal 23-Valent Vaccine IM ONE (10:00)
--- NOTE | 2017-01-02 12:16 | CP.PCM.PN ---
Addendum entered and electronically signed by Deanna Pennington DO 01/02/17 16: 12: PGY3 House Doctor addendum: Called because patient wants to sign out AMA. Patient AAOx3. Patient has murmur on cardiac exam and some rhonchi in lungs. Patient aware of that risks include but are not limited to heart attack, stroke, fall, trauma and . Patient signed AMA. Original Note: <Gideon Patel - Last Filed: 01/02/17 14:24> Subjective - Date & Time of Evaluation Date of Evaluation: 01/02/17 Time of Evaluation: 10:30 - Subjective Subjective: Medicine Note (PGY 1) : Dr. Aguillon's service Patient was seen and examined at bedside. Patient was resting comfortably in bed watching TV. Patient denies chest pain, sob,palpitations, dizziness, nausea , vomiting, abdominal pain and leg pain. Objective - Vital Signs/Intake and Output Vital Signs (last 24 hours): Temp Pulse Resp BP Pulse Ox 97.8 F 66 20 128/69 97 01/02/17 07:12 01/02/17 07:12 01/02/17 07:12 01/02/17 07:12 01/02/17 07:12 - Medications Medications: Current Medications Aspirin (Aspirin Chewable) 81 mg PO DAILY [facility] Last Admin: 01/02/17 09:45 Dose: 81 mg Cyclobenzaprine HCl (Flexeril) 10 mg PO Q8 PRN PRN Reason: Muscle spasm Dabigatran (Pradaxa) 150 mg PO BID [facility] Last Admin: 01/02/17 09:45 Dose: 150 mg Famotidine (Pepcid) 20 mg PO BID [facility] Last Admin: 01/02/17 09:45 Dose: 20 mg Hydrochlorothiazide (Microzide) 12.5 mg PO DAILY [facility] Last Admin: 01/02/17 09:45 Dose: 12.5 mg Sodium Chloride (Sodium Chloride 0.45%) 1,000 mls @ 75 mls/hr IV .[id number] [facility] Last Admin: 01/01/17 19:42 Dose: 75 mls/hr Insulin Human Regular (Novolin R) 0 unit SC ACHS [facility] PRN Reason: Protocol Last Admin: 01/02/17 07:52 Dose: Not Given Lisinopril (Zestril) 20 mg PO DAILY [facility] Last Admin: 01/02/17 09:45 Dose: 20 mg Ondansetron HCl (Zofran Inj) 4 mg IVP Q6H PRN PRN Reason: Nausea/Vomiting Rosuvastatin Calcium (Crestor) 5 mg PO HS [facility] Last Admin: 01/01/17 22:36 Dose: 5 mg - Labs Labs: PT 13.2 SECONDS (9.7-12.2) H 01/01/17 14:52 INR 1.2 01/01/17 14:52 APTT 56 SECONDS (21-34) H 01/01/17 14:52 - Constitutional Appears: Well, No Acute Distress - Head Exam Head Exam: ATRAUMATIC, NORMAL INSPECTION - Eye Exam Eye Exam: EOMI, Normal appearance - ENT Exam ENT Exam: Mucous Membranes Moist, Normal Exam - Respiratory Exam Respiratory Exam: Clear to Ausculation Bilateral, NORMAL BREATHING PATTERN - Cardiovascular Exam Cardiovascular Exam: REGULAR RHYTHM, +S1, +S2 - GI/Abdominal Exam GI & Abdominal Exam: Soft, Normal Bowel Sounds - Extremities Exam Extremities Exam: Normal Capillary Refill, Normal Inspection. absent: Calf Tenderness, Tenderness Additional comments: Significant Varicose veins B/L - Neurological Exam Neurological Exam: Alert, Awake, Oriented x3 - Psychiatric Exam Psychiatric exam: Normal Affect, Normal Mood - Skin Skin Exam: Dry, Normal Color, Warm Assessment and Plan (1) Chest pain Assessment & Plan: Stable Consulted cardiology, Dr. Martinez, help appreciated * As per recommendation, patient will be having an inpatient stress test on 02/04/17 Rule out ACS SOFI score: 3 (age >65, ASA in past 7 days, >3 CAD risk factors): 13% risk at 14 days On admission: * JULIANE: Negative x3 * Serial EK: Normal sinus rhythm and sinus bradycardia with no acute changes Lipid Panel: * T * Cholesterol: 125 * LDL: 56 * HDL: 41 TSH: 1.87. Free T4: 0.98 Pending HgbA1c results Medications: * Aspirin 81mg PO daily * Pradaxa 150mg PO BID * Crestor 5mg PO HS Imaging: Chest CT (r/o PE): No aneurysm, dissection or pulmonary embolus; atelectatic changes at the lung bases, no focal pneumonia Venous duplex scan of B/L lower extremity: No evidence of abnormal findings of the examined veins Echocardiogram: Pending official report Status: Acute (2) Diabetes mellitus type 2 in nonobese Assessment & Plan: Accuchbernardino ISS- low protocol Pending HgbA1C result Status: Acute (3) Hypertension Assessment & Plan: Continue home medications: * Lisinopril 20 mg po daily * HCTZ 12.5 mg po daily Status: Acute (4) Hx of deep venous thrombosis Assessment & Plan: Continue home medications: * Pardaxa 150mg po BID Imaging: B/L Venous duplex Scan: No evidence of abnormal findings of the examined veins Status: Chronic (5) Chronic back pain Assessment & Plan: Continue home medication: * Cyclobenzaprine 10mg PO Q8 PRN Status: Acute (6) Prophylactic measure Assessment & Plan: Ambulating SCD: Contraindicated due to history of DVT GI ppx: Pepcid 20mg PO BID Status: Acute <Maeve Aguillon V - Last Filed: 01/02/17 16:35> Objective - Vital Signs/Intake and Output Vital Signs (last 24 hours): Temp Pulse Resp BP Pulse Ox 97.9 F 55 L 20 136/75 99 01/02/17 15:42 01/02/17 15:42 01/02/17 15:42 01/02/17 15:42 01/02/17 15:42 - Medications Medications: Current Medications Aspirin (Aspirin Chewable) 81 mg PO DAILY [facility] Last Admin: 01/02/17 09:45 Dose: 81 mg Cyclobenzaprine HCl (Flexeril) 10 mg PO Q8 PRN PRN Reason: Muscle spasm Dabigatran (Pradaxa) 150 mg PO BID [facility] Last Admin: 01/02/17 09:45 Dose: 150 mg Famotidine (Pepcid) 20 mg PO BID [facility] Last Admin: 01/02/17 09:45 Dose: 20 mg Hydrochlorothiazide (Microzide) 12.5 mg PO DAILY [facility] Last Admin: 01/02/17 09:45 Dose: 12.5 mg Sodium Chloride (Sodium Chloride 0.45%) 1,000 mls @ 75 mls/hr IV .[id number] [facility] Last Admin: 01/01/17 19:42 Dose: 75 mls/hr Insulin Human Regular (Novolin R) 0 unit SC ACHS [facility] PRN Reason: Protocol Last Admin: 01/02/17 07:52 Dose: Not Given Lisinopril (Zestril) 20 mg PO DAILY [facility] Last Admin: 01/02/17 09:45 Dose: 20 mg Ondansetron HCl (Zofran Inj) 4 mg IVP Q6H PRN PRN Reason: Nausea/Vomiting Rosuvastatin Calcium (Crestor) 5 mg PO HS [facility] Last Admin: 01/01/17 22:36 Dose: 5 mg - Labs Labs: 01/02/17 13:55 01/02/17 13:55 PT 13.2 SECONDS (9.7-12.2) H 01/01/17 14:52 INR 1.2 01/01/17 14:52 APTT 56 SECONDS (21-34) H 01/01/17 14:52 Assessment and Plan (1) Chest pain Status: Acute (2) Diabetes Status: Chronic (3) Hypertension Status: Chronic (4) Hx of deep venous thrombosis Status: Chronic (5) Prophylactic measure Status: Acute Attending/Attestation - Attestation I have personally seen and examined this patient.: Yes I have fully participated in the care of the patient.: Yes I have reviewed all pertinent clinical information, including history, physical exam and plan: Yes Notes (Text): Patient seen, examined, and case discussed with both day-time resident. Patient seen this morning upon completion of echocardiogram and venous dopplers. Patient reports she has intermittent palpitations but does not have currently. + headache, denies chills, denies denies shortness of breathe, denies cough, denies abdominal pain, denies nausea, denies numbness/denies tingling. Awaiting official reports of echocardiogram and venous dopplers. Discussed CT chest study findings with patient, who does not have PE. JULIANE X3 negative: EKGs show NSR and 1 AV block with elevated NC 216ms. Cardiology scheduled for inpatient stress test for this upcoming Wednesday. later in the afternoon, patient wanted to leave against medical advice, resident instructed risks and benefits of leaving given she has cardiac risk factors and recommended for inpatient stress test, and if she leaves at risk for [place], cardiac arrest, and , and filled out AMA form. (1) Left Against Medical Advice Assessment and Plan: Patient instructed risks and benefits of leaving in middle of cardiac workup including but not limited to [place], cardiac arrest and/or by resident. patient was aware she was recommended for inpatient stress test prior to AMA. (2) Chest pain Assessment and Plan: SOIF score: 3 (age >65, ASA in past 7 days, >3 CAD risk factors): 13% risk at 14 days all-cause mortality consulted cardiology, Dr. Martinez, help appreciated (patient reports she does not want to see Kiara Fonseca; I asked during the patient encounter in the emergency room on admission) ASA 325mg po x1 in ED ASA 81 mg po daily Pardaxa 150 mg po BID- took first dose at home; will resume EKG in ED: NSR at 74 bpm JULIANE: 3 negative EKG: NSR EKG #2: 1 AV block NC 216ms f/u ECHO-->pending report CTA: no acute finding including PE (official report) available in EMR 1/ NS at 75cc/ hr f/u HgA1c-->pending TSH within normal Lipid panel; T, cholestrol: 125, LDL: 56, HDL: 41 Status: Acute (3) Diabetes Assessment and Plan: HgA1c-->pending Lipid panel; T, cholestrol: 125, LDL: 56, HDL: 41 Accuchecks ACHS ISS- low Patient reports she does not take anything for diabetes at bedside Status: Chronic (4) Hypertension Assessment and Plan: Resume patient's home medications: Lisinopril 20 mg po daily HCTZ 12.5 mg po daily Status: Chronic (5) Hx of deep venous thrombosis Assessment and Plan: pardaxa 150mg po BID f/u venous doppler r/o DVT-->official report pending Allergic to Plavix-- anaphylaxis Patient reports she needs to be on pradaxa lifelong Status: Chronic (6) Prophylactic measure Assessment and Plan: Pepcid 20 mg PO BID for GI ppx Zofran 4 mg IV q6h PRN nausea
[2017-01-02 13:58] LABS: BASO % 0.4 % (0.0-2.0); EOS # 0.1 K/uL (0.0-0.7); EOS % 3.1 % (0.0-4.0); HEMATOCRIT 36.8 % (34.0-47.0); LYMPH # 1.4 K/uL (1.0-4.3); LYMPH % 31.2 % (20.0-40.0); MEAN CORPUSCULAR HEMOGLOBIN 31.4 pg (27.0-31.0); MEAN CORPUSCULAR HGB CONC 34.1 g/dL (33.0-37.0); MEAN PLATELET VOLUME 9.5 fL (7.2-11.7); MONO # 0.3 K/uL (0.0-0.8); MONO % 7.3 % (0.0-10.0); RED CELL DISTRIBUTION WIDTH 13.3 % (11.5-14.5); WHITE BLOOD COUNT 4.4 K/uL (4.8-10.8)
[2017-01-02 14:17] LABS: CHLORIDE 97 mmol/L (98-107); POTASSIUM 4.3 mmol/L (3.6-5.2); SODIUM 138 mmol/L (132-148)
[2017-01-02 14:19] LABS: BILIRUBIN,TOTAL 0.5 mg/dL (0.2-1.3); GFR AFRICAN-AMERICAN > 60
[2017-01-02 14:20] LABS: ALB/GLOB RATIO 1.3 (1.0-2.1); ALKALINE PHOSPHATASE 62 U/L (38-126); ALT/SGPT 32 U/L (9-52); AST/SGOT 25 U/L (14-36); BLOOD UREA NITROGEN 12 mg/dL (7-17); CALCIUM 9.3 mg/dl (8.6-10.4); CARBON DIOXIDE 29 mmol/L (22-30); GLUCOSE,RANDOM 118 mg/dL (65-105)
[2017-01-02 14:21] LABS: MAGNESIUM 1.8 mg/dL (1.6-2.3)
[2017-01-02 15:45] VITALS: BP 136/75; PULSE 55; TEMP 97.9; O2SAT 99
--- NOTE | 2017-01-02 20:27 | CP.PCM.DIS ---
<Gideon Patel E - Last Filed: 01/02/17 20:28> Provider - Provider Date of Admission: 01/01/17 15:51 Attending physician: Maeve Aguillon DO Time Spent in preparation of Discharge (in minutes): 45 Diagnosis - Discharge Diagnosis (1) Chest pain Status: Acute (2) Diabetes mellitus type 2 in nonobese Status: Acute (3) Hypertension Status: Acute (4) Hx of deep venous thrombosis Status: Chronic (5) Chronic back pain Status: Acute (6) Prophylactic measure Status: Acute Hospital Course - Lab Results Lab Results: Most Recent Lab Values WBC 4.4 K/uL (4.8-10.8) L 01/02/17 13:55 RBC 4.00 Mil/uL (3.80-5.20) 01/02/17 13:55 Hgb 12.6 g/dL (11.0-16.0) 01/02/17 13:55 Hct 36.8 % (34.0-47.0) 01/02/17 13:55 MCV 92.0 fL (81.0-99.0) 01/02/17 13:55 MCH 31.4 pg (27.0-31.0) H 01/02/17 13:55 MCHC 34.1 g/dL (33.0-37.0) 01/02/17 13:55 RDW 13.3 % (11.5-14.5) 01/02/17 13:55 Plt Count 158 K/uL (130-400) 01/02/17 13:55 MPV 9.5 fL (7.2-11.7) 01/02/17 13:55 Neut % (Auto) 58.0 % (50.0-75.0) 01/02/17 13:55 Lymph % (Auto) 31.2 % (20.0-40.0) 01/02/17 13:55 [place] % (Auto) 7.3 % (0.0-10.0) 01/02/17 13:55 Eos % (Auto) 3.1 % (0.0-4.0) 01/02/17 13:55 Baso % (Auto) 0.4 % (0.0-2.0) 01/02/17 13:55 Neut # 2.6 K/uL (1.8-7.0) 01/02/17 13:55 Lymph # 1.4 K/uL (1.0-4.3) 01/02/17 13:55 [place] # 0.3 K/uL (0.0-0.8) 01/02/17 13:55 Eos # 0.1 K/uL (0.0-0.7) 01/02/17 13:55 Baso # 0.0 K/uL (0.0-0.2) 01/02/17 13:55 PT 13.2 SECONDS (9.7-12.2) H 01/01/17 14:52 INR 1.2 01/01/17 14:52 APTT 56 SECONDS (21-34) H 01/01/17 14:52 Sodium 138 mmol/L (132-148) 01/02/17 13:55 Potassium 4.3 mmol/L (3.6-5.2) 01/02/17 13:55 Chloride 97 mmol/L (98-107) L 01/02/17 13:55 Carbon Dioxide 29 mmol/L (22-30) 01/02/17 13:55 Anion Gap 17 (10-20) 01/02/17 13:55 BUN 12 mg/dL (7-17) 01/02/17 13:55 Creatinine 0.6 MG/DL (0.7-1.2) L 01/02/17 13:55 Est GFR ( Amer) > 60 01/02/17 13:55 Est GFR (Non-Af Amer) > 60 01/02/17 13:55 POC Glucose (mg/dL) 111 mg/dL (65-110) H 01/02/17 11:33 Random Glucose 118 mg/dL (65-105) H 01/02/17 13:55 Calcium 9.3 mg/dl (8.6-10.4) 01/02/17 13:55 Magnesium 1.8 mg/dL (1.6-2.3) 01/02/17 13:55 Total Bilirubin 0.5 mg/dL (0.2-1.3) 01/02/17 13:55 AST 25 U/L (14-36) 01/02/17 13:55 ALT 32 U/L (9-52) 01/02/17 13:55 Alkaline Phosphatase 62 U/L (38-126) 01/02/17 13:55 Total Creatine Kinase 78 U/L (30-135) 01/02/17 02:49 CK-MB (Mass) 0.74 ng/mL (0.0-3.38) 01/02/17 02:49 Troponin I < 0.0120 ng/mL (0.00-0.120) 01/01/17 14:52 Troponin I, Quant < 0.0120 ng/mL (0.00-0.120) 01/02/17 02:49 Total Protein 7.0 g/dL (6.3-8.3) 01/02/17 13:55 Albumin 3.9 g/dL (3.5-5.0) 01/02/17 13:55 Globulin 3.1 gm/dL (2.2-3.9) 01/02/17 13:55 Albumin/Globulin Ratio 1.3 (1.0-2.1) 01/02/17 13:55 Triglycerides 79 mg/dL (0-149) 01/02/17 07:29 Cholesterol 125 mg/dL (0-199) 01/02/17 07:29 LDL Cholesterol Direct 56 mg/dL (0-129) 01/02/17 07:29 HDL Cholesterol 41 mg/dL (30-70) 01/02/17 07:29 Free T4 0.98 ng/dL (0.78-2.19) 01/02/17 07:29 TSH 3rd Generation 1.87 mIU/L (0.46-4.68) 01/02/17 07:29 Urine Color Yellow (YELLOW) 01/01/17 14:52 Urine Clarity Hazy (Clear) 01/01/17 14:52 Urine pH 5.0 (5.0-8.0) 01/01/17 14:52 Ur Specific [place] 1.019 (1.003-1.030) 01/01/17 14:52 Urine Protein Negative mg/dL (NEGATIVE) 01/01/17 14:52 Urine Glucose (UA) Normal mg/dL (Normal) 01/01/17 14:52 Urine Ketones Negative mg/dL (NEGATIVE) 01/01/17 14:52 Urine Blood Negative (NEGATIVE) 01/01/17 14:52 Urine Nitrate Negative (NEGATIVE) 01/01/17 14:52 Urine Bilirubin Negative (NEGATIVE) 01/01/17 14:52 Urine Urobilinogen Normal mg/dL (0.2-1.0) 01/01/17 14:52 Ur Leukocyte Esterase Trace Jim/uL (Negative) 01/01/17 14:52 Urine WBC (Auto) 4 /hpf (0-5) 01/01/17 14:52 Urine RBC (Auto) 1 /hpf (0-3) 01/01/17 14:52 Ur Squamous Epith Cells 5 /hpf (0-5) 01/01/17 14:52 Urine Bacteria Rare (<OCC) 01/01/17 14:52 - Hospital Course Hospital Course: As per admission: HPI: Patient is a 66 year old female with PMH of HTN, DM, HLD, DVT (on Paradax), TIA (2010), chronic back pain, uterine cancer (1983) who comes into the ED for chest pain which started at 9pm the night before. Patient was resting and watching tv when she suddenly experienced tight squeezing midsternal chest pain with no radiation. Patient had never had pain like this in the past. Patient said the pain was 8/10. Patient had no shortness of breath, palpitations, or sweating. Patient said the pain then waxed and waned. Patient took tylenol for the pain with no relief. Patient tried to go to sleep but woke up about 8 times due to the chest pain and decided to come to the emergency room. Patient has not been sick recently. Patient sleeps on 2 pillows and does not feel short of breath at night. Patient goes for walks often and is able to walk a far distance with no chest pain or shortness of breath. Patient felt nauseous this morning, but with no episode of vomiting. Now in the ED patient is having no chest pain. Patient is no longer feeling nauseous. Patient denies headache, lightheadedness, dizziness, shortness of breath, palpitations, abdominal pain, nausea, vomiting, constipation, or diarrhea Hospital Course: Patient was admitted with the consideration of chest pain/rule out ACS. Cardiology consult was placed to Dr. Martinez, who agreed with appropriated diagnostic imaging as per medicine team with recommendation to continue patient on appropriate medications. Furthermore, Dr. Martinez recommended that patient remain for medical observation with inpatient cardiac stress test on Wednesday, January 05, 2017. This was explained to patient, however patient left against medical advice without cardiology clearance and stating she would return for a cardiac stress test. Patient was made aware of her risks include but are not limited to heart attack, stroke, fall, trauma and as there was murmur on cardiac exam and some rhonchi in lungs exam. Pertinent Study Result: Chest CT (r/o PE): No aneurysm, dissection or pulmonary embolus; atelectatic changes at the lung bases, no focal pneumonia Venous duplex scan of B/L lower extremity: No evidence of abnormal findings of the examined veins Pending Echocardiogram result: This is a brief summary of events. For a complete course, please refer to the medical record Discharge Exam - Head Exam Head Exam: ATRAUMATIC, NORMAL INSPECTION - Eye Exam Eye Exam: EOMI, Normal appearance - ENT Exam ENT Exam: Mucous Membranes Moist, Normal Exam - Respiratory Exam Respiratory Exam: Rhonchi, NORMAL BREATHING PATTERN, UNREMARKABLE Additional comments: Mild Rhonci - Cardiovascular Exam Cardiovascular Exam: REGULAR RHYTHM, +S1, +S2 Additional comments: Murmur appreciated - GI/Abdominal Exam GI & Abdominal Exam: Normal Bowel Sounds, Soft - Extremities Exam Extremities exam: normal inspection - Neurological Exam Neurological exam: Alert, Oriented x3 - Psychiatric Exam Psychiatric exam: Normal Affect, Normal Mood - Skin Skin Exam: Dry, Normal Color, Warm Discharge Plan - Follow Up Plan Condition: STABLE Disposition: AGAINST MEDICAL ADVICE <Maeve Aguillon V - Last Filed: 01/02/17 23:10> Provider - Provider Date of Admission: 01/01/17 15:51 Attending physician: Maeve Aguillon DO Diagnosis - Discharge Diagnosis (1) Chest pain Status: Acute (2) Diabetes Status: Chronic (3) Hypertension Status: Chronic (4) Hx of deep venous thrombosis Status: Chronic (5) Prophylactic measure Status: Acute Hospital Course - Lab Results Lab Results: Most Recent Lab Values WBC 4.4 K/uL (4.8-10.8) L 01/02/17 13:55 RBC 4.00 Mil/uL (3.80-5.20) 01/02/17 13:55 Hgb 12.6 g/dL (11.0-16.0) 01/02/17 13:55 Hct 36.8 % (34.0-47.0) 01/02/17 13:55 MCV 92.0 fL (81.0-99.0) 01/02/17 13:55 MCH 31.4 pg (27.0-31.0) H 01/02/17 13:55 MCHC 34.1 g/dL (33.0-37.0) 01/02/17 13:55 RDW 13.3 % (11.5-14.5) 01/02/17 13:55 Plt Count 158 K/uL (130-400) 01/02/17 13:55 MPV 9.5 fL (7.2-11.7) 01/02/17 13:55 Neut % (Auto) 58.0 % (50.0-75.0) 01/02/17 13:55 Lymph % (Auto) 31.2 % (20.0-40.0) 01/02/17 13:55 [place] % (Auto) 7.3 % (0.0-10.0) 01/02/17 13:55 Eos % (Auto) 3.1 % (0.0-4.0) 01/02/17 13:55 Baso % (Auto) 0.4 % (0.0-2.0) 01/02/17 13:55 Neut # 2.6 K/uL (1.8-7.0) 01/02/17 13:55 Lymph # 1.4 K/uL (1.0-4.3) 01/02/17 13:55 [place] # 0.3 K/uL (0.0-0.8) 01/02/17 13:55 Eos # 0.1 K/uL (0.0-0.7) 01/02/17 13:55 Baso # 0.0 K/uL (0.0-0.2) 01/02/17 13:55 PT 13.2 SECONDS (9.7-12.2) H 01/01/17 14:52 INR 1.2 01/01/17 14:52 APTT 56 SECONDS (21-34) H 01/01/17 14:52 Sodium 138 mmol/L (132-148) 01/02/17 13:55 Potassium 4.3 mmol/L (3.6-5.2) 01/02/17 13:55 Chloride 97 mmol/L (98-107) L 01/02/17 13:55 Carbon Dioxide 29 mmol/L (22-30) 01/02/17 13:55 Anion Gap 17 (10-20) 01/02/17 13:55 BUN 12 mg/dL (7-17) 01/02/17 13:55 Creatinine 0.6 MG/DL (0.7-1.2) L 01/02/17 13:55 Est GFR ( Amer) > 60 01/02/17 13:55 Est GFR (Non-Af Amer) > 60 01/02/17 13:55 POC Glucose (mg/dL) 111 mg/dL (65-110) H 01/02/17 11:33 Random Glucose 118 mg/dL (65-105) H 01/02/17 13:55 Calcium 9.3 mg/dl (8.6-10.4) 01/02/17 13:55 Magnesium 1.8 mg/dL (1.6-2.3) 01/02/17 13:55 Total Bilirubin 0.5 mg/dL (0.2-1.3) 01/02/17 13:55 AST 25 U/L (14-36) 01/02/17 13:55 ALT 32 U/L (9-52) 01/02/17 13:55 Alkaline Phosphatase 62 U/L (38-126) 01/02/17 13:55 Total Creatine Kinase 78 U/L (30-135) 01/02/17 02:49 CK-MB (Mass) 0.74 ng/mL (0.0-3.38) 01/02/17 02:49 Troponin I < 0.0120 ng/mL (0.00-0.120) 01/01/17 14:52 Troponin I, Quant < 0.0120 ng/mL (0.00-0.120) 01/02/17 02:49 Total Protein 7.0 g/dL (6.3-8.3) 01/02/17 13:55 Albumin 3.9 g/dL (3.5-5.0) 01/02/17 13:55 Globulin 3.1 gm/dL (2.2-3.9) 01/02/17 13:55 Albumin/Globulin Ratio 1.3 (1.0-2.1) 01/02/17 13:55 Triglycerides 79 mg/dL (0-149) 01/02/17 07: Cholesterol 125 mg/dL (0-199) 01/02/17 07: LDL Cholesterol Direct 56 mg/dL (0-129) 01/02/17 07: HDL Cholesterol 41 mg/dL (30-70) 01/02/17 07: Free T4 0.98 ng/dL (0.78-2.19) 01/02/17 07: TSH 3rd Generation 1.87 mIU/L (0.46-4.68) 01/02/17 07:29 Urine Color Yellow (YELLOW) 01/01/17 14:52 Urine Clarity Hazy (Clear) 01/01/17 14:52 Urine pH 5.0 (5.0-8.0) 01/01/17 14:52 Ur Specific [place] 1.019 (1.003-1.030) 01/01/17 14:52 Urine Protein Negative mg/dL (NEGATIVE) 01/01/17 14:52 Urine Glucose (UA) Normal mg/dL (Normal) 01/01/17 14:52 Urine Ketones Negative mg/dL (NEGATIVE) 01/01/17 14:52 Urine Blood Negative (NEGATIVE) 01/01/17 14:52 Urine Nitrate Negative (NEGATIVE) 01/01/17 14:52 Urine Bilirubin Negative (NEGATIVE) 01/01/17 14:52 Urine Urobilinogen Normal mg/dL (0.2-1.0) 01/01/17 14:52 Ur Leukocyte Esterase Trace Jim/uL (Negative) 01/01/17 14:52 Urine WBC (Auto) 4 /hpf (0-5) 01/01/17 14:52 Urine RBC (Auto) 1 /hpf (0-3) 01/01/17 14:52 Ur Squamous Epith Cells 5 /hpf (0-5) 01/01/17 14:52 Urine Bacteria Rare (<OCC) 01/01/17 14:52 Attending/Attestation - Attestation I have personally seen and examined this patient.: Yes I have fully participated in the care of the patient.: Yes I have reviewed all pertinent clinical information, including history, physical exam and plan: Yes Notes (Text): Patient seen, examined, and case discussed with both day-time resident. Patient seen this morning upon completion of echocardiogram and venous dopplers. Patient reports she has intermittent palpitations but does not have currently. + headache, denies chills, denies denies shortness of breathe, denies cough, denies abdominal pain, denies nausea, denies numbness/denies tingling. Given Tylenol 650mg PO X1 to relieve headache. Awaiting official reports of echocardiogram and venous dopplers. Discussed CT chest study findings with patient, who does not have PE. JULIANE X3 negative: EKGs show NSR and 1 AV block with elevated OH 216ms. Cardiology scheduled for inpatient stress test for this upcoming Wednesday. later in the afternoon, patient wanted to leave against medical advice, resident instructed risks and benefits of leaving given she has cardiac risk factors and recommended for inpatient stress test, and if she leaves at risk for [place], cardiac arrest, and , and filled out AMA form. This is a summary of patient's hospitalization. Please refer EMR for further details. (1) Left Against Medical Advice Assessment and Plan: Patient instructed risks and benefits of leaving in middle of cardiac workup for chest pain including but not limited to [place], cardiac arrest and/or by resident. patient was aware she was recommended for inpatient stress test prior to AMA.
--- NOTE | 2017-01-04 09:03 | CARD ---
APPROVED REPORT EXAM: Two-dimensional and M-mode echocardiogram with Doppler and color Doppler. Other Information Quality : GoodRhythm : NSR INDICATION Dizziness and Vertigo Chest Pain HX DEEP VENOUS THROMBOSIS RISK FACTORS Hypertension Diabetes M-Mode DIMENSIONS RVDd0.73 (2.1-3.2cm)Left Atrium (MM)4.06 (2.5-4.0cm) IVSd1.01 (0.7-1.1cm)Aortic Root3.16 (2.2-3.7cm) LVDd6.00 (4.0-5.6cm)Aortic Cusp Exc.1.52 (1.5-2.0cm) PWd1.04 (0.7-1.1cm)FS (%) 31 % LVDs4.13 (2.0-3.8cm)LVEF (%)58 (>50%) Mitral Valve MV E Ssqfmrvz75.0cm/sMV A Phhydrcb498.4cm/sE/A ratio0.7 TDI E/Lateral E'0.0E/Medial E'0.0 Tricuspid Valve TR Peak [id number]/sTR Peak [id number] <Conclusion> Left ventricle: thickness: normal; size: normal; overall ejection fraction: 58%: diastolic filling pressures: normal Mitral valve: annulus: normal: leaflets: normal: excursion: normal; no significant trans-mitral gradient: no significant incompetence: left atrium: dilated Aortic valve: leaflets: normal: excursion: normal; no significant trans-aortic gradient: No significant incompetence: aortic root: normal Right sided Structures: Pulmonary valve: normal; no significant incompetence; Tricuspid valve: normal; no significant incompetence: Intra-cardiac hemodynamics: pulmonary systolic pressures:37 mmHgl; central venous pressures: normal No pericardial effusion
--- NOTE | 2017-01-04 14:40 | VASCLAB ---
PROCEDURE: Lower Extremity Venous Duplex Exam. HISTORY: r/o DVT b/l leg edema, venous insufficiency, Chest pain PRIORS: None. TECHNIQUE: Bilateral common femoral, femoral, popliteal and posterior tibial, peroneal and great saphenous veins were evaluated. Flow was assessed with color Doppler, compressibility, assessment of phasic flow and augmentation response. Report prepared by Juan Daniel Victoria, T FINDINGS: RIGHT: 1. Common Femoral Vein: 1.1. Compressibility - Fully compressible: Thrombus - None : Flow - Phasic: Augmentation -Normal: Reflux - . 2. Femoral Vein: 2.1. Compressibility - Fully compressible: Thrombus - None : Flow - Phasic: Augmentation -Normal: Reflux - . 3. Popliteal Vein: 3.1. Compressibility - Fully compressible: Thrombus - None : Flow - Phasic: Augmentation -Normal: Reflux - . 4. Posterior Tibial Vein: 4.1. Compressibility - Fully compressible: Thrombus - None: Flow - : Augmentation -: Reflux - . 5. Peroneal Vein: 5.1. Compressibility - Fully compressible: Thrombus - None: Flow - : Augmentation -: Reflux - . 6. Great Saphenous Vein: 6.1. Compressibility - Fully compressible: Thrombus - None: Flow - : Augmentation - : Reflux - . LEFT: 1. Common Femoral Vein: 1.1. Compressibility - Fully compressible: Thrombus - None: Flow - Phasic: Augmentation -Normal: Reflux - . 2. Femoral Vein: 2.1. Compressibility - Fully compressible: Thrombus - None: Flow - Phasic: Augmentation -Normal: Reflux - . 3. Popliteal Vein: 3.1. Compressibility - Fully compressible: Thrombus - None : Flow - Phasic: Augmentation -Normal: Reflux - . 4. Posterior Tibial Vein: 4.1. Compressibility - Fully compressible: Thrombus - None: Flow - : Augmentation -: Reflux - . 5. Peroneal Vein: 5.1. Compressibility - Fully compressible: Thrombus - None: Flow - : Augmentation -: Reflux - . 6. Great Saphenous Vein: 6.1. Compressibility - Fully compressible: Thrombus - None: Flow - : Augmentation - : Reflux - . OTHER FINDINGS: Right: There was a fluid filled structure behind the knee, which measured 3.08x2.0 cm, possibly a Bridges cyst. Left: None significant. IMPRESSION: Right: No evidence of deep or superficial vein thrombosis of the right lower extremity. Left: No evidence of deep or superficial vein thrombosis of the left lower extremity.
--- NOTE | 2017-01-04 14:41 | CARD ---
APPROVED REPORT EKG Measurement Heart [id number] [place] [id number] <Conclusion> Normal sinus rhythm Normal ECG
--- NOTE | 2017-01-08 19:34 | CARD ---
APPROVED REPORT EKG Measurement Heart [id number] [place] [id number] <Conclusion> Sinus bradycardia Cannot rule out Inferior infarct, age undetermined Abnormal ECG
--- NOTE | 2017-01-08 19:34 | CARD ---
APPROVED REPORT EKG Measurement Heart [id number] [place] [id number] <Conclusion> Sinus rhythm with 1st degree AV block with occasional premature ventricular complexes Otherwise normal ECG
--- NOTE | 2017-01-08 19:34 | CARD ---
APPROVED REPORT EKG Measurement Heart [id number] [place] 216P56 [id number] <Conclusion> Sinus bradycardia with 1st degree AV block Otherwise normal ECG
== END 2017-01-02 16:15 | disposition left against medical advice (07) ==
LOC: C.ER 13:22 → C.9E 15:51 → C.6T 16:30
PROVIDERS: ADMIT Hospitalist; ATTEND Hospitalist
DX: R07.9 Chest pain, unspecified (principal); Z87.891 Personal history of nicotine dependence; K57.30 Diverticulosis of large intestine without perforation or abscess without bleeding; I10 Essential (primary) hypertension; E78.5 Hyperlipidemia, unspecified; E11.9 Type 2 diabetes mellitus without complications; D72.829 Elevated white blood cell count, unspecified
CPT/HCPCS: 36415; 71020; 71275; 80053; 80061; 81001; 82948; 83036; 83735; 84439; 84443; 84484; 85025; 85610; 85730; 93005; 93306; 93970; 99285; G0378; J7030; Q9967

== ENCOUNTER 2017-04-06 05:06 | Emergency (ER) | payer OTHER, MEDICAID ==
[2017-04-06 05:07] VITALS: BMI 29.7
[2017-04-06] MEDS ORDERED: Sodium Chloride 0.9% 1,000 ML IV ONE (05:57)
[2017-04-06] MEDS ORDERED: Sodium Chloride 0.9% 1,000 ML ONE (06:00)
--- NOTE | 2017-04-06 06:18 | C.PDOC ---
History Of Present Illness 66 y/o female c/o headache, returning of vertigo symptoms, and ringing of the left ear since last night. Patient was seen yesterday and given a prescription of Meclizine, but could not afford it because her insurance would not cover it. Patient prescribed Pradaxa for a DVT to the right lower extremity and had a TIA in 2010. Patient denies visual changes, numbness, or weakness. No nausea or vomiting. Time Seen by Provider: 04/06/17 05:15 Chief Complaint (Nursing): Headache History Per: Patient History/Exam Limitations: no limitations Onset/Duration Of Symptoms: Days (Last night) Current Symptoms Are (Timing): Still Present Severity: Mild Associated Symptoms: denies: Blurred Vision, Nausea, Vomiting, Extremity Weakness Recent travel outside of the [place]: No Additional History Per: Patient Past Medical History Reviewed: Historical Data, Nursing Documentation, Vital Signs Vital Signs: Last Vital Signs Temp 97.7 F 04/06/17 07:03 Pulse 61 04/06/17 07:03 Resp 17 04/06/17 07:03 BP 130/72 04/06/17 07:03 Pulse Ox 100 04/06/17 07:19 - Medical History PMH: Deep Vein Thrombosis (on Pradaxa), Fractures (LUE), HTN, Hypercholesterolemia, TIA Denies: Chronic Kidney Disease - [facility] Procedures VACCINATION NEC (12/17/13) Family History: States: Unknown Family Hx - Social History Hx Tobacco Use: Yes Hx Alcohol Use: No Hx Substance Use: No - Immunization History Hx Tetanus Toxoid Vaccination: No Hx Influenza Vaccination: No Hx Pneumococcal Vaccination: No Review Of Systems Except As Marked, All Systems Reviewed And Found Negative. Eyes: Negative for: Vision Change ENT: Negative for: Ear Pain Cardiovascular: Negative for: Chest Pain, Palpitations, Orthopnea, Paroxysmal Noc. Dyspnea, Light Headedness Respiratory: Negative for: Cough, Shortness of Breath Gastrointestinal: Negative for: Nausea, Vomiting Genitourinary: Negative for: Dysuria, Frequency, Hematuria Musculoskeletal: Negative for: Neck Pain, Shoulder Pain Neurological: Positive for: Headache, Other (Vertigo, ringing of the left ear). Negative for: Weakness, Numbness Physical Exam - Physical Exam Appears: Non-toxic, No Acute Distress Skin: Warm, Dry Head: Atraumatic, Normacephalic Eye(s): bilateral: Normal Inspection, PERRL, EOMI Chest: Symmetrical Cardiovascular: Rhythm Regular, No Murmur Respiratory: Normal Breath Sounds, No Rales, No Rhonchi, No Wheezing Gastrointestinal/Abdominal: Soft, No Tenderness Extremity: Normal ROM (x4) Neurological/Psych: Oriented x3, Normal Cognition, Normal Cranial Nerves, Cerebellar Signs, Normal Motor, Normal Sensation, Normal Reflexes, Other (No focal deficit) Gait: Steady ED Course And Treatment O2 Sat by Pulse Oximetry: 100 (RA) Pulse Ox Interpretation: Normal Medical Decision Making Medical Decision Making: Plans: * Antivert * Reglan * IV fluids * Toradol pt feels much better. cahnges RX to meclizine 12.5 mg tabs- pt says her insurance plan will cover this. She has follow up. Disposition Counseled Patient/Family Regarding: Diagnosis - Disposition Referrals: Jeb Newsome MD [Staff Provider] - Disposition: HOME/ ROUTINE Disposition Time: 07:15 Condition: STABLE Additional Instructions: follow with ENT and PCP Prescriptions: Meclizine [Antivert] 12.5 mg PO TID PRN #9 tab PRN Reason: Dizziness Instructions: Vertigo (ED) Forms: [facility] (Dominican), Work Excuse - Clinical Impression Clinical Impression: Vertigo - Scribe Statement The provider has reviewed the documentation as recorded by the Scribe Kita sevilla All medical record entries made by the Scribe were at my direction and personally dictated by me. I have reviewed the chart and agree that the record accurately reflects my personal performance of the history, physical exam, medical decision making, and the department course for this patient. I have also personally directed, reviewed, and agree with the discharge instructions and disposition.
[2017-04-06 07:04] VITALS: BP 130/72; PULSE 61; RESP 17; TEMP 97.7
[2017-04-06 07:17] VITALS: O2SAT 100
== END 2017-04-06 07:39 | disposition home or self-care (01) ==
LOC: C.ER 05:06
DX: R42 Dizziness and giddiness (principal)
CPT/HCPCS: 96361; 96365; 96375; 99284; J1885; J2765; J7040

== ENCOUNTER 2017-04-19 00:26 | Emergency (ER) | payer OTHER, MEDICAID ==
[2017-04-19 00:27] VITALS: BMI 29.7
[2017-04-19] MEDS ORDERED: Lactated Ringer's 1,000 ML IV STA (01:34)
[2017-04-19] MEDS ORDERED: Lactated Ringer's 1,000 ML ONE (01:56)
[2017-04-19 01:57] LABS: BASO % 0.3 % (0.0-2.0); EOS # 0.3 K/uL (0.0-0.7); EOS % 2.9 % (0.0-4.0); LYMPH # 3.2 K/uL (1.0-4.3); LYMPH % 29.5 % (20.0-40.0); MEAN CORPUSCULAR HEMOGLOBIN 31.2 pg (27.0-31.0); MEAN CORPUSCULAR HGB CONC 33.9 g/dL (33.0-37.0); MEAN PLATELET VOLUME 9.5 fL (7.2-11.7); MONO # 0.9 K/uL (0.0-0.8); MONO % 8.6 % (0.0-10.0); RED CELL DISTRIBUTION WIDTH 12.9 % (11.5-14.5); WHITE BLOOD COUNT 10.7 K/uL (4.8-10.8)
[2017-04-19 02:05] LABS: CHLORIDE 96 mmol/L (98-107); POTASSIUM 3.4 mmol/L (3.6-5.2); SODIUM 131 mmol/L (132-148)
[2017-04-19 02:07] LABS: GFR AFRICAN-AMERICAN > 60
[2017-04-19 02:08] LABS: ALKALINE PHOSPHATASE 71 U/L (38-126); ALT/SGPT 36 U/L (9-52); AST/SGOT 21 U/L (14-36); BILIRUBIN,TOTAL 0.6 mg/dL (0.2-1.3); BLOOD UREA NITROGEN 29 mg/dL (7-17); CARBON DIOXIDE 23 mmol/L (22-30); GLUCOSE,RANDOM 99 mg/dL (65-105); TOTAL PROTEIN 8.3 g/dL (6.3-8.3)
--- NOTE | 2017-04-19 02:38 | C.PDOC ---
History Of Present Illness 66 year old female with a Hx of meniere's disease presents to the ER with a complaint of feeling dizzy described as spinning sensation on ambulation and having pressure to her face and behind her eyes that she describes as "foggy", associated with a tinnitus. Patient reports she was recently taken off her meclizine by Dr. Dominguez and placed on prednisone and water pills. Patient notes she was recently seen in the ER and has been put back on meclizine which she has been taking but does not understand why her symptoms still persist. Patient states she had no work up done during her last ER visit and requests an evaluation because is concerned " something bad is going on" with her. Patient denies extremity weakness, numbness, syncope, change in sensation, CO, SOB. Time Seen by Provider: 04/19/17 01:15 Chief Complaint (Nursing): Dizziness/Lightheaded History Per: Patient History/Exam Limitations: no limitations Onset/Duration Of Symptoms: Hrs Current Symptoms Are (Timing): Still Present Seizure Or Post-ictal Symptoms: None Possible Causative Factor(s): Other (Not known) Fall Associated With With Symptoms: No Recent travel outside of the [place]: No - Symptoms Of CVA Associated Symptoms: denies: Impaired Speech, Seizure Activity, New Vision Deficit(Left), New Vision Deficit(Right), Decreased Ability To Walk, New Confusion Past Medical History Reviewed: Historical Data, Nursing Documentation, Vital Signs Vital Signs: Last Vital Signs Temp 97.6 F 04/19/17 03:29 Pulse 64 04/19/17 03:29 Resp 16 04/19/17 03:29 BP 115/68 04/19/17 03:29 Pulse Ox 99 04/19/17 03:38 - Medical History PMH: Deep Vein Thrombosis (on Pradaxa), Fractures (LUE), HTN, Hypercholesterolemia, TIA Surgical History: No Surg Hx - [facility] Procedures VACCINATION NEC (12/17/13) Family History: States: Unknown Family Hx - Social History Hx Tobacco Use: Yes Hx Alcohol Use: No Hx Substance Use: No - Immunization History Hx Tetanus Toxoid Vaccination: No Hx Influenza Vaccination: No Hx Pneumococcal Vaccination: No Review Of Systems Constitutional: Negative for: Fever, Chills Eyes: Positive for: Vision Change ENT: Positive for: Other (Tinnitus) Cardiovascular: Positive for: Other (vertigo). Negative for: Chest Pain, Palpitations Respiratory: Negative for: Cough, Shortness of Breath Gastrointestinal: Negative for: Nausea, Vomiting Neurological: Positive for: Dizziness. Negative for: Weakness, Numbness, Confusion, Altered Mental Status, Headache Physical Exam - Physical Exam Appears: Non-toxic, No Acute Distress Skin: Normal Color, Warm, Dry Head: Atraumatic, Normacephalic Eye(s): bilateral: Normal Inspection, PERRL, EOMI Ear(s): Bilateral: Normal Oral Mucosa: Moist Neck: Normal, Supple Chest: Symmetrical, No Tenderness Cardiovascular: Rhythm Regular Respiratory: Normal Breath Sounds, No Rales, No Rhonchi, No Wheezing Gastrointestinal/Abdominal: Soft, No Tenderness Neurological/Psych: Oriented x3, Normal Speech, Normal Cognition, Normal Motor, Normal Sensation Gait: Steady ED Course And Treatment - Laboratory Results Result Diagrams: 04/19/17 01:54 04/19/17 01:54 O2 Sat by Pulse Oximetry: 99 (Room air) Pulse Ox Interpretation: Normal Progress Note: Blood work, EKG, and CT head ordered. IV fluids administered. Labs and Head CT results reviewed and d/w pt. Pt was made aware of plan of treatment and she understood and agreed with plan. Pt reports improved symptoms , VSS. Pt is ambulatory in ED with steady gait.Advised follow up with Dr Newsome Reevaluation Time: 04:12 Reassessment Condition: Improved Disposition Counseled Patient/Family Regarding: Diagnosis, Need For Followup, Rx Given - Disposition Referrals: Jeb Newsome MD [Staff Provider] - Disposition: HOME/ ROUTINE Disposition Time: 03:34 Condition: STABLE Additional Instructions: Increase PO fluids Take meds as directed Follow up with PMD/ ENT Keep appointments for audiology testing Return to ER if worse Prescriptions: Amoxicillin/Clavulanate [Augmentin 875 MG-125 MG] 1 tab PO BID #14 tab Fluticasone Propionate [Flonase] 2 spr LINDA DAILY #1 bottle Instructions: Sinusitis (ED), Vertigo (ED) Forms: [facility] (Ukrainian) - Clinical Impression Clinical Impression: Maxillary sinusitis, Vertigo - Scribe Statement The provider has reviewed the documentation as recorded by the Scribe Omar Hicks All medical record entries made by the Scribe were at my direction and personally dictated by me. I have reviewed the chart and agree that the record accurately reflects my personal performance of the history, physical exam, medical decision making, and the department course for this patient. I have also personally directed, reviewed, and agree with the discharge instructions and disposition.
[2017-04-19] MEDS ORDERED: Potassium Chloride 20 mEq ER Tab PO STA (02:52)
--- NOTE | 2017-04-19 03:26 | CT ---
EXAM: CT Head Without Intravenous Contrast EXAM DATE/TIME: 04/19/2017 1:34 AM CLINICAL HISTORY: 66 years old, female; Pain; Other: Dizziness; Additional info: Headache TECHNIQUE: Axial computed tomography images of the head/brain without intravenous contrast. All CT scans at this facility use one or more dose reduction techniques, viz.: automated exposure control; ma/kV adjustment per patient size (including targeted exams where dose is matched to indication; i.e. head); or iterative reconstruction technique. Coronal and sagittal reformatted images were created and reviewed. COMPARISON: Prior head CT of 2015-08-25 FINDINGS: BRAIN: Diffuse, mild, age-related cortical atrophy and ventriculomegaly. No significant acute abnormality identified. No acute hemorrhage seen within the brain. No acute extra-axial fluid collections visualized. No evidence of significant mass effect within the brain. No CT findings to suggest an acute, large territorial infarct, however, small or early acute infarcts may not be visible on CT. VENTRICLES: See above. BONES/JOINTS: No acute fractures or other acute bony abnormality noted. SOFT TISSUES: No acute abnormality of the visualized soft tissues is seen. SINUSES: Fluid in the left maxillary sinus, compatible with acute sinusitis. There is also mild mucosal thickening in the left maxillary sinus. Remaining visualized paranasal sinuses appear clear. MASTOID AIR CELLS: Mastoid air cells appear clear. IMPRESSION: - No acute findings seen within the brain. - Left maxillary acute sinusitis. - See above for remaining findings.
[2017-04-19] MEDS ORDERED: Potassium Chloride 20 mEq ER Tab PO ONE (03:28)
[2017-04-19 03:30] VITALS: BP 115/68; PULSE 64; RESP 16; TEMP 97.6
[2017-04-19 03:37] VITALS: O2SAT 99
== END 2017-04-19 03:53 | disposition home or self-care (01) ==
LOC: C.ER 00:26
DX: J32.0 Chronic maxillary sinusitis (principal); R42 Dizziness and giddiness; F17.210 Nicotine dependence, cigarettes, uncomplicated
CPT/HCPCS: 70450; 80053; 85025; 99285; J7120

== ENCOUNTER 2017-09-18 14:00 | Emergency (ER) | payer MEDICARE, MEDICAID ==
[2017-09-18 14:01] VITALS: BMI 28.7
[2017-09-18] MEDS ORDERED: Sodium Chloride 0.9% 1,000 ML IV ONE (14:21)
[2017-09-18 15:06] LABS: SQUAMOUS EPITHIAL 4 /hpf (0-5); URINE BILIRUBIN NEGATIVE (NEGATIVE); URINE BLOOD NEGATIVE (NEGATIVE); URINE CLARITY Clear (Clear); URINE COLOR Straw (YELLOW); URINE GLUCOSE (UA) NORMAL (Normal); URINE LEUKOCYTE ESTERASE NEG Leu/uL (Negative); URINE PROTEIN NEGATIVE (NEGATIVE); URINE UROBILINOGEN NORMAL mg/dL (0.2-1.0)
[2017-09-18 15:27] LABS: BASO % 0.6 % (0.0-2.0); EOS # 0.1 K/uL (0.0-0.7); EOS % 2.6 % (0.0-4.0); HEMOGLOBIN 12.1 g/dL (11.0-16.0); LYMPH # 1.1 K/uL (1.0-4.3); LYMPH % 23.3 % (20.0-40.0); MEAN CELL VOLUME 91.6 fL (81.0-99.0); MEAN CORPUSCULAR HEMOGLOBIN 31.6 pg (27.0-31.0); MEAN CORPUSCULAR HGB CONC 34.4 g/dL (33.0-37.0); MONO # 0.3 K/uL (0.0-0.8); NEUT # 3.3 K/uL (1.8-7.0); NEUT % 66.5 % (50.0-75.0); RBC 3.85 Mil/uL (3.80-5.20); RED CELL DISTRIBUTION WIDTH 13.1 % (11.5-14.5); WHITE BLOOD COUNT 4.9 K/uL (4.8-10.8)
[2017-09-18 15:41] LABS: ALB/GLOB RATIO 1.2 (1.0-2.1); ALBUMIN 4.2 g/dL (3.5-5.0); ALT/SGPT 33 U/L (9-52); AST/SGOT 30 U/L (14-36); BLOOD UREA NITROGEN 18 mg/dL (7-17); CALCIUM 9.6 mg/dl (8.6-10.4); GFR AFRICAN-AMERICAN > 60; GFR NON-AFRICAN AMERICAN > 60
[2017-09-18 15:43] LABS: INR 1.2; PROTHROMBIN TIME 13.2 SECONDS (9.7-12.2)
--- NOTE | 2017-09-18 15:59 | C.PDOC ---
History Of Present Illness 67 year old female, whose PMHx includes HTN, hypercholesterolemia, DVT, uterine cancer and stoke in 2010, presents to the ED for evaluation. Patient states she was having a bowel movement when she noticed red color (questions if blood) on the toilet paper (no red color in toilet bowel) when she wiped herself. Patient notes her stool was brown in color and denies any dark or black stools. Patient started taking Ciproflaxin two days ago for a UTI. She has also been taking Pradaxa for 3 years and was advised by her doctor to present to the ED such concerning symptoms for possible bleeding arise. Patient states she is currently asymptomatic and denies: nausea, vomiting, and abdominal pain. Patient reports social history of smoking cigarettes. She reports family history of HTN and cancer. PMD: Jeb Ceron Time Seen by Provider: 09/18/17 14:20 Chief Complaint (Nursing): GI Problem History Per: Patient History/Exam Limitations: no limitations Onset/Duration Of Symptoms: Hrs Current Symptoms Are (Timing): Still Present Number Of Bleeding Episodes: One Quality Of Discomfort: denies: "Pain" Associated Symptoms: denies: Nausea, Vomiting, Melena Additional History Per: Patient Past Medical History Reviewed: Historical Data, Nursing Documentation, Vital Signs Vital Signs: Last Vital Signs Temp 98.2 F 09/18/17 16:24 Pulse 82 09/18/17 16:24 Resp 16 09/18/17 16:24 BP 137/82 09/18/17 16:24 Pulse Ox 97 09/18/17 16:55 - Medical History PMH: Anxiety, Deep Vein Thrombosis (on Pradaxa), Fractures (LUE), HTN, Hypercholesterolemia, TIA Denies: Chronic Kidney Disease - [facility] Procedures VACCINATION NEC (12/17/13) Family History: States: No Known Family Hx - Social History Hx Tobacco Use: Yes Hx Alcohol Use: No Hx Substance Use: No - Immunization History Hx Tetanus Toxoid Vaccination: No Hx Influenza Vaccination: No Hx Pneumococcal Vaccination: No Review Of Systems Gastrointestinal: Positive for: Other (blood on toilet paper after bowel movement ). Negative for: Nausea, Vomiting, Abdominal Pain Physical Exam - Physical Exam Appears: Non-toxic, No Acute Distress Skin: Normal Color, Warm, Dry Head: Atraumatic, Normacephalic Eye(s): bilateral: Normal Inspection Ear(s): Bilateral: Normal Nose: Normal Oral Mucosa: Moist Tongue: Normal Appearing Lips: Normal Appearing Neck: Supple Chest: Symmetrical Cardiovascular: Rhythm Regular, No Murmur Respiratory: Normal Breath Sounds, No Rales, No Rhonchi, No Wheezing Gastrointestinal/Abdominal: Normal Exam, Bowel Sounds, Soft, No Tenderness, No Guarding, No Rebound Rectal: No Melena, Hemorrhoids (external ), Other (brown stool noted in vault ) Back: Normal Inspection Extremity: Normal ROM, Capillary Refill (less than 2 seconds ) Extremity: Bilateral: Atraumatic Neurological/Psych: Oriented x3, Normal Speech, Normal Cognition ED Course And Treatment - Laboratory Results Result Diagrams: 09/18/17 15:09 09/18/17 15:09 O2 Sat by Pulse Oximetry: 97 Medical Decision Making Medical Decision Making: Initial Impression: Red color on toilet paper after wiped herself after BM-- possible blood (from ext hemorrhoid or from internal bleeding) vs. not blood Initial Plan: * bloodwork * urinalysis * EKG * orthostatic vital signs * Pepcid IVP * IV Fluids * reassess and disposition Progress: Bloodwork, urinalysis, and EKG ordered. Pepcid IVP and IV Fluids administered. Orthostatic vital signs obtained. Stool occult blood is negative. On reassessment, patient is resting comfortably, showing no signs of distress and is stable for discharge. Patient is advised to follow up with her PMD within 1-2 days for further evaluation and/or return to the ED if symptoms persist or worsen. I also contacted PMD and informed him of today's findings. Pt will follow up with him. Disposition Counseled Patient/Family Regarding: Studies Performed, Diagnosis, Need For Followup - Disposition Referrals: Jeb Newsome MD [Staff Provider] - Disposition: HOME/ ROUTINE Disposition Time: 15:56 Condition: STABLE Additional Instructions: Ms. Bowden, thank you for letting us take care of you today. Return to the ER if your symptoms worsen, or if any problems. Follow up with Dr. Newsome next in a couple of days for a re-evaluation. Take the medication listed below as prescribed. . Prescriptions: Docusate [Colace] 1 tab PO TID #30 cap Instructions: Hemorrhoids, Bloody Stools, Adult (DC) Forms: General Discharge Instructions Print Language: [email or web address] - Clinical Impression Clinical Impression: External hemorrhoid - Scribe Statement The provider has reviewed the documentation as recorded by the Scribe (Fidelia Frye) Provider Attestation: All medical record entries made by the Scribe were at my direction and personally dictated by me. I have reviewed the chart and agree that the record accurately reflects my personal performance of the history, physical exam, medical decision making, and the department course for this patient. I have also personally directed, reviewed, and agree with the discharge instructions and disposition.
[2017-09-18 16:25] VITALS: BP 137/82; PULSE 82; RESP 16; TEMP 98.2
[2017-09-18 16:40] VITALS: O2SAT 97
== END 2017-09-18 16:24 | disposition home or self-care (01) ==
LOC: C.ER 14:00
DX: K64.4 Residual hemorrhoidal skin tags (principal); I10 Essential (primary) hypertension; E78.00 Pure hypercholesterolemia, unspecified; Z86.718 Personal history of other venous thrombosis and embolism; Z79.01 Long term (current) use of anticoagulants; F17.210 Nicotine dependence, cigarettes, uncomplicated
CPT/HCPCS: 80053; 81001; 85025; 85610; 85730; 86850; 86900; 96374; 99285; G0328; J7040

== ENCOUNTER 2018-03-12 16:51 | Emergency (ER) | payer MEDICARE, MEDICAID ==
[2018-03-12 16:51] VITALS: BMI 28.7
[2018-03-12 17:10] VITALS: BP 149/80; PULSE 71; RESP 18; TEMP 98.8; O2SAT 100
--- NOTE | 2018-03-12 17:32 | C.PDOC ---
History Of Present Illness 67-year-old female, presents to the emergency department with complaints of bruises on extremities. Patient states that four days ago, she notes bruises on her thighs and red dots on her arms. She denies any fall/trauma, or similar rash before. Patient states she takes Pradaxa and baby Aspirin every day. No other complaints at this time. Time Seen by Provider: 03/12/18 17:28 Chief Complaint (Nursing): Abnormal Skin Integrity History Per: Patient History/Exam Limitations: no limitations Current Symptoms Are (Timing): Still Present Past Medical History Reviewed: Historical Data, Nursing Documentation, Vital Signs Vital Signs: Last Vital Signs Temp 98.8 F 03/12/18 17:07 Pulse 71 03/12/18 17:07 Resp 18 03/12/18 17:07 BP 149/80 03/12/18 17:07 Pulse Ox 100 03/12/18 17:07 - Medical History PMH: Anxiety, Deep Vein Thrombosis (on Pradaxa), Fractures (LUE), HTN, Hypercholesterolemia, TIA Denies: Chronic Kidney Disease - [facility] [place] Procedures VACCINATION NEC (12/17/13) Family History: States: No Known Family Hx - Social History Hx Tobacco Use: Yes Hx Alcohol Use: No Hx Substance Use: No - Immunization History Hx Tetanus Toxoid Vaccination: No Hx Influenza Vaccination: No Hx Pneumococcal Vaccination: No Review Of Systems Constitutional: Negative for: Fever Cardiovascular: Negative for: Chest Pain Respiratory: Negative for: Shortness of Breath Gastrointestinal: Negative for: Nausea, Vomiting Skin: Positive for: Other (ecchymosis) Physical Exam - Physical Exam Appears: Non-toxic, No Acute Distress Skin: Warm, Dry, No Rash, Ecchymosis (scattered patches on thighs and several small angiomas noted on upper extremities.) Head: Atraumatic Eye(s): bilateral: Normal Inspection Nose: Normal Oral Mucosa: Moist Lips: Normal Appearing Neck: Normal ROM Chest: Symmetrical Cardiovascular: Rhythm Regular, No Murmur Respiratory: Normal Breath Sounds, No Accessory Muscle Use Extremity: Normal ROM, No Deformity Neurological/Psych: Oriented x3, Normal Speech ED Course And Treatment - Laboratory Results Result Diagrams: 03/12/18 17:51 Lab Interpretation: No Acute Changes O2 Sat by Pulse Oximetry: 100 Pulse Ox Interpretation: Normal (RA) Disposition Counseled Patient/Family Regarding: Studies Performed, Diagnosis, Need For Followup - Disposition Referrals: Jeb Newsome MD [Staff Provider] - Disposition: HOME/ ROUTINE Disposition Time: 18:13 Condition: STABLE Additional Instructions: FOLLOW UP WITH PMD NEXT WEEK FOR RE-EVALUATION. IF SYMPTOMS GET WORSE OR ANY NEW CONCERNING SYMPTOMS DEVELOP RETURN TO ED. Instructions: Taking Care of Bruises Forms: [facility] [place] [facility] (Niuean) - Clinical Impression Clinical Impression: Ecchymosis, Angioma - Scribe Statement The provider has reviewed the documentation as recorded by the Scribe (Elvia Olivarez) All medical record entries made by the Scribe were at my direction and personally dictated by me. I have reviewed the chart and agree that the record accurately reflects my personal performance of the history, physical exam, medical decision making, and the department course for this patient. I have also personally directed, reviewed, and agree with the discharge instructions and disposition.
[2018-03-12 17:54] LABS: HEMOGLOBIN 12.9 g/dL (11.0-16.0); MEAN CELL VOLUME 91.8 fL (81.0-99.0); MEAN CORPUSCULAR HEMOGLOBIN 31.6 pg (27.0-31.0); MEAN CORPUSCULAR HGB CONC 34.5 g/dL (33.0-37.0); MEAN PLATELET VOLUME 9.3 fL (7.2-11.7); RBC 4.09 Mil/uL (3.80-5.20); RED CELL DISTRIBUTION WIDTH 13.1 % (11.5-14.5); WHITE BLOOD COUNT 4.5 K/uL (4.8-10.8)
[2018-03-12 18:03] LABS: INR 1.2; PROTHROMBIN TIME 13.6 SECONDS (9.7-12.2)
== END 2018-03-12 18:28 | disposition home or self-care (01) ==
LOC: C.ER 16:51
DX: S70.10XA Contusion of unspecified thigh, initial encounter (principal); X58.XXXA Exposure to other specified factors, initial encounter; D18.01 Hemangioma of skin and subcutaneous tissue

== ENCOUNTER 2018-05-14 07:48 | Emergency (ER) | payer MEDICARE, MEDICAID ==
[2018-05-14 07:48] VITALS: BMI 28.7
[2018-05-14 07:54] VITALS: RESP 18
[2018-05-14 08:36] LABS: SQUAMOUS EPITHIAL 10 /hpf (0-5); URINE BACTERIA RARE (<OCC); URINE BILIRUBIN NEGATIVE (NEGATIVE); URINE BLOOD NEGATIVE (NEGATIVE); URINE CLARITY Hazy (Clear); URINE COLOR Yellow (YELLOW); URINE GLUCOSE (UA) NORMAL (Normal); URINE LEUKOCYTE ESTERASE 2+ Leu/uL (Negative); URINE PROTEIN NEGATIVE (NEGATIVE); URINE UROBILINOGEN NORMAL mg/dL (0.2-1.0)
--- NOTE | 2018-05-14 09:35 | C.PDOC ---
History Of Present Illness 67 year old female presents to ED for evaluation of pain to umbilical region only when pressing the region since yesterday. She reports having gas and constipation. Last bowel movement was 2 days ago. Otherwise, denies rectal pain, nausea, vomiting, or fever. Time Seen by Provider: 05/14/18 07:56 Chief Complaint (Nursing): Abdominal Pain History Per: Patient History/Exam Limitations: no limitations Onset/Duration Of Symptoms: Days Current Symptoms Are (Timing): Still Present Location Of Pain/Discomfort: Periumbilical Radiation Of Pain To:: None Quality Of Discomfort: Gas Associated Symptoms: Constipation. denies: Fever, Nausea, Vomiting, Diarrhea, Back Pain, Chest Pain, Urinary Symptoms Exacerbating Factors: None Alleviating Factors: None Recent travel outside of the [place]: No Additional History Per: Patient Abnormal Vaginal Bleeding: No Past Medical History Reviewed: Historical Data, Nursing Documentation, Vital Signs Vital Signs: Last Vital Signs Temp 97.9 F 05/14/18 07:51 Pulse 70 05/14/18 07:51 Resp 18 05/14/18 07:51 BP 162/72 H 05/14/18 07:51 Pulse Ox 100 05/14/18 07:51 - Medical History PMH: Anxiety, Deep Vein Thrombosis (on Pradaxa), Fractures (LUE), HTN, Hyperc holesterolemia, TIA Denies: Chronic Kidney Disease - [facility] Procedures VACCINATION NEC (12/17/13) Family History: States: Unknown Family Hx - Social History Hx Tobacco Use: Yes Hx Alcohol Use: No Hx Substance Use: No - Immunization History Hx Tetanus Toxoid Vaccination: No Hx Influenza Vaccination: No Hx Pneumococcal Vaccination: No Review Of Systems Except As Marked, All Systems Reviewed And Found Negative. Constitutional: Negative for: Fever, Chills Cardiovascular: Negative for: Chest Pain Respiratory: Negative for: Shortness of Breath Gastrointestinal: Positive for: Abdominal Pain, Constipation. Negative for: Nausea, Vomiting, Diarrhea, Melena, Hematochezia, Rectal Pain Genitourinary: Negative for: Dysuria, Frequency, Hematuria Musculoskeletal: Negative for: Back Pain Physical Exam - Physical Exam Appears: Non-toxic, No Acute Distress Skin: Normal Color, Warm, Dry Head: Atraumatic, Normacephalic Eye(s): bilateral: Normal Inspection Oral Mucosa: Moist Neck: Normal ROM, Supple Cardiovascular: Rhythm Regular, No Murmur Respiratory: Normal Breath Sounds, No Rales, No Rhonchi, No Wheezing Gastrointestinal/Abdominal: Soft, Tenderness (mild tendernenss to umbilical area with deep palpation), No Distention, No Guarding, No Rebound, No Hernia, No Other ((-)McBurney's sign, (+) obese abdomen) Back: No CVA Tenderness Extremity: Normal ROM Neurological/Psych: Oriented x3, Normal Speech ED Course And Treatment O2 Sat by Pulse Oximetry: 100 (on RA) Pulse Ox Interpretation: Normal Medical Decision Making Medical Decision Making: Plan: * Urinalysis * abdominal xray Progress: urine results were normal. Xray shows gas and constipation. Patient remained afebrile well and in no acute distress. Vital signs WNL. Abdomen soft without tenderness, guarding or rebound. She has no pain currently. Explain results and the plan for discharge with Rx. Patient feels comfortable going home and will be discharged Disposition Counseled Patient/Family Regarding: Need For Followup, Rx Given - Disposition Referrals: Jeb Newsome MD [Staff Provider] - Disposition: HOME/ ROUTINE Disposition Time: 09:32 Condition: GOOD Additional Instructions: Your urine results were normal. Xray shows gas and constipation. Take Colace to help soften and regular stools. Take Mag Citrate as laxative to relieve constipation Take Simethicone as needed for gas relief Follow up with your doctor Prescriptions: Docusate [Colace] 100 mg PO TID PRN #30 cap PRN Reason: Constipation Magnesium Citrate [Citrate of Mag] 300 ml PO ONCE PRN #1 bottle PRN Reason: Constipation Simethicone [Gas Relief] 80 mg PO Q8 PRN #24 tab.chew PRN Reason: Flatulence Instructions: Constipation in Adults Forms: [employer] (Chilean), Work Excuse - POA Present On Arrival: None - Clinical Impression Clinical Impression: Abdominal gas pain, Constipation - PA / MEDICAL CLAIMS REPRESENTATIVE / Resident Statement MD/DO has reviewed & agrees with the documentation as recorded. - Scribe Statement The provider has reviewed the documentation as recorded by the Gini Frye All medical record entries made by the Simonibdru were at my direction and personally dictated by me. I have reviewed the chart and agree that the record accurately reflects my personal performance of the history, physical exam, medical decision making, and the department course for this patient. I have also personally directed, reviewed, and agree with the discharge instructions and disposition.
[2018-05-14 09:38] VITALS: BP 149/73; PULSE 64; TEMP 98.8
[2018-05-14 10:15] VITALS: O2SAT 100
--- NOTE | 2018-05-14 12:32 | RAD ---
Date of service: 05/14/2018 PROCEDURE: Radiographs of the chest and abdomen (obstructive series) HISTORY: abd pain, constipation COMPARISON: No prior. TECHNIQUE: AP radiograph of the chest, with upright and supine radiographs of the abdomen. FINDINGS: CHEST: Lungs: Clear. Cardiovascular: Normal size heart. No pulmonary vascular congestion. No aortic atherosclerotic calcification present Pleura: No pleural fluid. No pneumothorax. Other findings: None. ABDOMEN AND PELVIS: Bowel: Unremarkable bowel gas pattern. No evidence of mechanical obstruction. Free air: None. Bones: Unremarkable. Other findings: There are multiple phleboliths in the pelvis. IMPRESSION: Clear lungs. Nonobstructive nonspecific bowel gas pattern.
== END 2018-05-14 09:48 | disposition home or self-care (01) ==
LOC: C.ER 07:48
DX: K59.00 Constipation, unspecified (principal); R14.1 Gas pain; I10 Essential (primary) hypertension; E78.00 Pure hypercholesterolemia, unspecified; Z86.718 Personal history of other venous thrombosis and embolism; Z86.73 Personal history of transient ischemic attack (TIA), and cerebral infarction without residual deficits; Z72.0 Tobacco use

== ENCOUNTER 2018-10-14 20:34 | Emergency (ER) | payer MEDICARE, MEDICAID ==
[2018-10-14 20:34] VITALS: BMI 28.7
[2018-10-14 20:59] VITALS: BP 131/74; PULSE 79; RESP 17; TEMP 98.6; O2SAT 96
--- NOTE | 2018-10-14 21:33 | C.PDOC ---
History Of Present Illness 68 year old female presents to the ED for evaluation. Patient reports was seen earlier today at a wound care center by Dr. Hughes and placed on an unna boot for a non healing diabetic ulcer to her right lower leg. Patient states she was at work all day today, was standing and feels the area swollen. Patient denies fever, chills, weakness, numbness, rash. Time Seen by Provider: 10/14/18 21:14 Chief Complaint (Nursing): Medical Clearance History Per: Patient History/Exam Limitations: no limitations Onset/Duration Of Symptoms: Hrs Current Symptoms Are (Timing): Still Present Reports Recently: Treated By A Physician (Dr. Hughes) Recent travel outside of the [place]: No Additional History Per: Patient Past Medical History Reviewed: Historical Data, Nursing Documentation, Vital Signs Vital Signs: Last Vital Signs Temp 98.6 F 10/14/18 20:46 Pulse 79 10/14/18 20:46 Resp 17 10/14/18 20:46 BP 131/74 10/14/18 20:46 Pulse Ox 96 10/14/18 20:46 Primary Care Provider: Jeb Newsome - Medical History PMH: Anxiety, Deep Vein Thrombosis (on Pradaxa), Fractures (LUE), HTN, Hypercholesterolemia, TIA Denies: Chronic Kidney Disease Surgical History: No Surg Hx - [facility] Procedures VACCINATION NEC (12/17/13) Family History: States: Unknown Family Hx - Social History Hx Tobacco Use: Yes Hx Alcohol Use: No Hx Substance Use: No - Immunization History Hx Tetanus Toxoid Vaccination: No Hx Influenza Vaccination: No Hx Pneumococcal Vaccination: No Review Of Systems Constitutional: Negative for: Fever, Chills Musculoskeletal: Positive for: Foot Pain. Negative for: Leg Pain Skin: Positive for: Other (dibetic ulcer). Negative for: Rash, Bruising Neurological: Negative for: Weakness, Numbness Physical Exam - Physical Exam Appears: Non-toxic, No Acute Distress Skin: Normal Color, Warm, Dry Head: Atraumatic, Normacephalic Eye(s): bilateral: Normal Inspection Neck: Normal ROM, Supple Extremity: Normal ROM, No Tenderness, Capillary Refill (< 2 seconds), No Swelling, Other (unna boot in place right lower leg. No tightness of the dressing. Able to palce 3 fingers of either hand at the calf or ankle area of the unna boot. No swelling when compared to left lower leg.) Pulses: Left Dorsalis Pedis: Normal, Right Dorsalis Pedis: Normal Neurological/Psych: Oriented x3, Normal Speech, Normal Cognition, Normal Motor, Normal Sensation Gait: Steady ED Course And Treatment O2 Sat by Pulse Oximetry: 96 (ON RA) Pulse Ox Interpretation: Normal Progress Note: Patient was reassured and advised to follow up with Dr. Smith for further evaluation. Disposition Counseled Patient/Family Regarding: Diagnosis, Need For Followup, Rx Given - Disposition Disposition: HOME/ ROUTINE Disposition Time: 21:31 Condition: STABLE Additional Instructions: Please elevate the leg Follow all instructions as given to you by DR Hughes Return to ER if moderate pain , swelling, if toes are discolored, blue, cold or worse Instructions: Unna Boot Forms: [facility] (Dutch) - Clinical Impression Clinical Impression: Visit for wound check, Encounter for dressing of wound - PA / SHOULDER BONER / Resident Statement MD/DO has reviewed & agrees with the documentation as recorded. - Scribe Statement The provider has reviewed the documentation as recorded by the Scribe Shane Niño All medical record entries made by the Scribdru were at my direction and personally dictated by me. I have reviewed the chart and agree that the record accurately reflects my personal performance of the history, physical exam, medical decision making, and the department course for this patient. I have also personally directed, reviewed, and agree with the discharge instructions and disposition.
== END 2018-10-14 21:42 | disposition home or self-care (01) ==
LOC: C.ER 20:34
DX: Z48.00 Encounter for change or removal of nonsurgical wound dressing (principal)